=== PATIENT | female | born 1935 | race Caucasian/White ===

== ENCOUNTER 2022-11-27 11:21 | Outpatient (CLI) | payer MEDICARE, SELFPAY | END 2022-11-27 11:22 | disposition home or self-care (01) | LOC: AMB 12-02 07:37 | PROVIDERS: PCP Family Medicine; Visit Provider Emergency Medicine Emergency Medical Services | DX: R55 Syncope and collapse (principal) | CPT/HCPCS: A0425; A0429 ==

== ENCOUNTER 2022-11-27 11:41 | Observation (INO) | payer MEDICARE, SELFPAY ==
[2022-11-27] VITALS (42 sets, daily range): BP systolic 99–173; BP diastolic 53–118; PULSE 87–145; RESP 14–28; TEMP 36.5–36.6; O2SAT 89–99; BMI 41.0
--- NOTE | 2022-11-27 12:10 | ED.GENADULT ---
HPI - General Adult General Chief complaint: Weakness Stated complaint: Headache Time Seen by Provider: 11/27/22 11:55 History of Present Illness HPI narrative: This 87-year-old female comes in reporting some generalized weakness that began today. She states that she was able to get up and ambulate. She did not take her metoprolol this morning. She typically takes 50 mg twice daily. She arrives here with atrial fibrillation and rapid ventricular response. She denies having any chest pain. She states that she has not had atrial fibrillation in the past. She is not on any anticoagulants. She states that she does have an occasional cough and this is been present for the past couple weeks. She did have a antibiotic prescribed for a sinus infection a few weeks ago and took this for a while but did not complete the treatment. Related Data Home Medications Medication Instructions Recorded Confirmed atorvastatin 10 mg tablet 10 mg PO DAILY 11/27/22 11/27/22 chlorthalidone 25 mg tablet 25 mg PO DAILY 11/27/22 11/27/22 fluticasone propionate 220 1 puff inhalation BID 11/27/22 11/27/22 mcg/actuation HFA aerosol inhaler levothyroxine 75 mcg tablet 75 mcg PO DAILY 11/27/22 11/27/22 losartan 50 mg tablet 50 mg PO DAILY 11/27/22 11/27/22 metoprolol tartrate 50 mg tablet 50 mg PO BID 11/27/22 11/27/22 pantoprazole 40 mg tablet,delayed 40 mg PO DAILY 11/27/22 11/27/22 release potassium chloride 10 mEq 20 meq PO DAILY 11/27/22 11/27/22 tablet,extended release Allergies Allergy/AdvReac Type Severity Reaction Status Date / Time codeine Allergy Verified 11/27/22 11:49 lisinopril Allergy Verified 11/27/22 11:49 Review of Systems Status of ROS: Reports: 10 or more systems reviewed and unremarkable except as noted in History and below Narrative: Constitutional: No fevers, no weight gain or loss. Eyes: No discharge. No vision changes. HENT: No congestion, no sore throat, no ear pain. Cardiovascular: No chest pain, no palpitations. Respiratory: No shortness of breath, no wheezes, no cough. Gastrointestinal: No abdominal pain, no vomiting, no diarrhea. Genitourinary: No dysuria, no hematuria. Musculoskeletal: Normal range of motion. Skin: No rashes, no pruritis. Neurological: No dizziness, sensory change, speech change. She reports generalized weakness but is able to get up and ambulate. Endo/Heme/Allergies: No bruising or bleeding. No polydipsia. Pysch: no suicidality, no anxiety, no insomnia. All other systems reviewed and are negative. PFSH PFS Social History Smoking Status: Never smoker How often do you have a drink containing alcohol: monthly or less How often do you have six or more drinks on one occasion: Never AUDIT-C Alcohol total score: 1 Non-prescribed substance use: denies use Exam Narrative: Exam Narrative: Constitutional: Well-developed, well-nourished, no acute distress. HEENT: Normocephalic, atraumatic. Neck: Normal range of motion. Nontender. Supple. Heart: Irregular. No murmurs. Tachycardia. Normal distal pulses. Lungs: Clear to auscultation. No chest discomfort. No wheezes, rhonchi, or rales. Abdomen: Normal bowel sounds. Nontender. No rebound tenderness. Genitalia: Deferred. Back: No midline tenderness. Normal range of motion. Extremities: Normal range of motion. No injury. Skin: Intact. No rash. Warm. No erythema or pallor. Neurologic: No altered sensation. No weakness. Alert and oriented. Psychiatric: No suicidality. No anxiety or depression. No insomnia. Nursing notes and vitals signs are reviewed. Const: Vital Signs, click to edit/add: Vital Signs - 24 hr 11/27/22 11:50 11/27/22 12:05 11/27/22 12:11 Temperature 97.7 F Pulse Rate 134 H 127 H Pulse Rate [Right Pulse Oximeter] 129 H Respiratory Rate 28 H Blood Pressure 146/88 H Blood Pressure [Ri ght Upper Arm] 173/103 H Pulse Oximetry 90 92 90 Oxygen Delivery Me thod Room Air Oxygen Flow Rate 11/27/22 12:15 11/27/22 12:21 11/27/22 12:30 Temperature Pulse Rate 129 H 118 H 102 H Pulse Rate [Right Pulse Oximeter] Respiratory Rate Blood Pressure 118/84 Blood Pressure [Ri ght Upper Arm] Pulse Oximetry 92 89 90 Oxygen Delivery Me thod Oxygen Flow Rate 11/27/22 12:31 11/27/22 12:32 11/27/22 12:35 Temperature Pulse Rate 115 H 112 H Pulse Rate [Right Pulse Oximeter] Respiratory Rate Blood Pressure 130/108 H Blood Pressure [Ri ght Upper Arm] Pulse Oximetry 92 94 95 Oxygen Delivery Me thod Nasal Cannula Nasal Cannula Nasal Cannula Oxygen Flow Rate 2 2 2 11/27/22 12:45 11/27/22 13:00 11/27/22 13:01 Temperature Pulse Rate 99 111 H 103 H Pulse Rate [Right Pulse Oximeter] Respiratory Rate Blood Pressure 116/80 Blood Pressure [Ri ght Upper Arm] Pulse Oximetry 94 96 97 Oxygen Delivery Me thod Nasal Cannula Nasal Cannula Nasal Cannula Oxygen Flow Rate 2 2 2 11/27/22 13:02 11/27/22 13:25 11/27/22 13:30 Temperature Pulse Rate 103 H 124 H Pulse Rate [Right Pulse Oximeter] Respiratory Rate 21 Blood Pressure Blood Pressure [Ri ght Upper Arm] Pulse Oximetry 98 93 Oxygen Delivery Me thod Nasal Cannula Nasal Cannula Oxygen Flow Rate 2 2 11/27/22 13:31 11/27/22 13:35 11/27/22 13:36 Temperature Pulse Rate 125 H 110 H 140 H Pulse Rate [Right Pulse Oximeter] Respiratory Rate 20 18 22 Blood Pressure 126/88 132/101 H 142/104 H Blood Pressure [Ri ght Upper Arm] Pulse Oximetry 97 97 99 Oxygen Delivery Me thod Nasal Cannula Nasal Cannula Nasal Cannula Oxygen Flow Rate 2 3 3 11/27/22 13:41 11/27/22 13:45 11/27/22 13:46 Temperature Pulse Rate 102 H 106 H 90 Pulse Rate [Right Pulse Oximeter] Respiratory Rate 18 19 Blood Pressure 122/75 107/79 Blood Pressure [Ri ght Upper Arm] Pulse Oximetry 92 95 95 Oxygen Delivery Me thod Ambu-Bag Nasal Cannula Nasal Cannula Oxygen Flow Rate 15 3 3 11/27/22 13:47 11/27/22 13:51 Temperature Pulse Rate 121 H 114 H Pulse Rate [Right Pulse Oximeter] Respiratory Rate 22 16 Blood Pressure 100/81 Blood Pressure [Ri ght Upper Arm] Pulse Oximetry 96 95 Oxygen Delivery Me thod Nasal Cannula Nasal Cannula Oxygen Flow Rate 2 2 Course Vital Signs Vital signs: Initial Vital Signs Temperature 97.7 F 11/27/22 11:50 Temperature Source Temporal Artery Scan 11/27/22 11:50 Pulse Rate 129 H 11/27/22 11:50 Pulse Rhythm Irregularly Irregular 11/27/22 11:50 Respiratory Rate 28 H 11/27/22 11:50 Blood Pressure 173/103 H 11/27/22 11:50 Blood Pressure Mean 126 H 11/27/22 11:50 Blood Pressure Position Sitting 11/27/22 11:50 Pulse Oximetry 90 11/27/22 11:50 Oxygen Delivery Method Room Air 11/27/22 11:50 Vital Signs Temperature 97.7 F 11/27/22 11:50 Pulse Rate 129 H 11/27/22 11:50 Respiratory Rate 28 H 11/27/22 11:50 Blood Pressure 173/103 H 11/27/22 11:50 Pulse Oximetry 90 11/27/22 11:50 Oxygen Delivery Method Room Air 11/27/22 11:50 Temperature 97.7 F 11/27/22 11:50 Pulse Rate 114 H 11/27/22 13:51 Respiratory Rate 16 11/27/22 13:51 Blood Pressure 100/81 11/27/22 13:51 Pulse Oximetry 95 11/27/22 13:51 Oxygen Delivery Method Nasal Cannula 11/27/22 13:51 Oxygen Flow Rate 2 11/27/22 13:51 Medical Decision Making MDM Narrative Medical decision making narrative: This patient comes in reporting generalized weakness but does have strength to ambulate. She arrives with tachycardia and irregular rhythm indicating atrial fibrillation with rapid ventricular response. An IV was established where she received 20 mg of diltiazem. This brought her heart rate down to around 110 beats per minute and did lower her blood pressure also. She states that she has not taking her morning meds which she typically takes at noon. This included metoprolol tartrate 50 mg. She last took this medicine at about 6:00 p.m. last night. Lab results returned with reassuring troponin level. Her magnesium is low at 1.2. IV magnesium was administered at 1 gram/hour. The patient is a candidate for cardioversion. After informed consent anesthesia was present to administer total of 100 mg of propofol for adequate sedation. Synchronized cardioversion was attempted at 150 joules with no particular capture of her heart rhythm. The joules were increased to 200 and repeat attempt was made. She did go into sinus rhythm with frequent PACs. This occurred for about a minute after which time she reverted back to atrial fibrillation with rapid ventricular response. She did receive a L of normal saline intravenously in her blood pressure has a systolic value of around 120. I did give an oral dose of metoprolol 25 mg. I spoke with the hospitalist control systems drafting officer, Dr. Calderon, who recommended giving another additional 3 g of magnesium. He is agreeable to bringing her into the hospital for this to occur and further manage the patient's symptoms. Lab Data Labs: Lab Results 11/27/22 11/27/22 Range/Units 11:55 12:04 WBC 8.47 (4.50-11.00) K/uL RBC 4.07 (4.00-5.20) m/uL Hgb 12.5 (12.0-16.0) gm/dL Hct 38.2 (33.0-51.0) % MCV 94 (80-100) fL MCH 31 (26-34) pg MCHC 33 (32-36) gm/dL RDW Coeff of Boni 12.8 (11.5-15.5) % Plt Count 236 (140-440) K/uL Neut % (Auto) 73.6 H (42.0-72.0) % Lymph % (Auto) 16.3 L (20-44) % [place] % (Auto) 7.2 (0.0-11.0) % Eos % (Auto) 2.4 (0.0-7.0) % Baso % (Auto) 0.1 (0.0-3.0) % Neut # (Auto) 6.20 (1.7-7.0) K/uL Lymph # (Auto) 1.40 (0.90-2.90) K/uL [place] # (Auto) 0.60 (0.00-0.90) K/UL Eos # (Auto) 0.20 (0.00-0.50) K/uL Baso # (Auto) 0.01 (0.00-0.30) K/uL Sodium 138 (135-149) mmol/L Potassium 3.4 L (3.6-5.1) mmol/L Chloride 99 (96-114) mmol/L Carbon Dioxide 29 (20-32) mmol/L BUN 20 (7-30) mg/dL Creatinine 0.8 (0.5-1.5) mg/dL Estimated GFR 71 ml/min Glucose 124 H (60-115) mg/dL Calcium 9.2 (8.4-10.6) mg/dL Magnesium 1.2 L (1.5-2.6) mg/dL SARS-CoV-2 (PCR) Negative SARS-CoV-2 (Negative) Influenza Type A (PCR) Negative PCR FLU A (Negative) Influenza Type B (PCR) Negative PCR FLU B (Negative) RSV (PCR) Negative PCR RSV (Negative) POC Troponin I 0.02 (0.01-0.04) ng/ml ECG Data Attestation: I personally reviewed and interpreted this ECG as follows: Interpretation: Atrial fibrillation with rapid ventricular response. There are no specific ST or T-wave abnormalities. Rate is 136 beats per minute. Discharge Plan Discharge Clinical Impression: Atrial fibrillation with rapid ventricular response, Hypomagnesemia Patient Disposition: Admitted As Inpatient Condition: Stable Prescriptions: No Action losartan 50 mg tablet 50 mg PO DAILY atorvastatin 10 mg tablet 10 mg PO DAILY potassium chloride 10 mEq tablet extended release 20 meq PO DAILY chlorthalidone 25 mg tablet 25 mg PO DAILY levothyroxine 75 mcg tablet 75 mcg PO DAILY pantoprazole 40 mg tablet,delayed release (DR/EC) 40 mg PO DAILY metoprolol tartrate 50 mg tablet 50 mg PO BID fluticasone propionate 220 mcg/actuation HFA aerosol inhaler 1 puff INHALATION BID Follow Up/Referrals: Abbe Zuluaga MD [Primary Care Provider] -
[2022-11-27] MEDS: dilTIAZem 5 MG/ML inj 20 MG IVP (12:13)
[2022-11-27 12:17] LABS: Basophils Absolute Auto 0.01 K/uL (0.00-0.30); Basophils Percent Auto 0.1 % (0.0-3.0); Eosinophils Percent Auto 2.4 % (0.0-7.0); Hematocrit 38.2 % (33.0-51.0); Hemoglobin* 12.5 gm/dL (12.0-16.0); Immature Granulocytes Abs Auto 0.03 K/uL (0.00-0.30); Immature Granulocytes Pct Auto 0.4 %; Lymphocytes Percent Auto 16.3 % (20-44); Mean Corpuscular HGB Conc 33 gm/dL (32-36); Mean Corpuscular Hemoglobin 31 pg (26-34); Mean Corpuscular Volume 94 fL (80-100); Monocytes Percent Auto 7.2 % (0.0-11.0); Neutrophils Percent Auto 73.6 % (42.0-72.0); Platelet Count* 236 K/uL (140-440); RDW Coefficient of Variation % 12.8 % (11.5-15.5); Red Blood Count 4.07 m/uL (4.00-5.20); White Blood Count* 8.47 K/uL (4.50-11.00)
[2022-11-27 12:21] LABS: Troponin, Point-of-Care* 0.02 ng/ml (0.01-0.04)
[2022-11-27 12:23] LABS: Slide Review Reflex No
--- NOTE | 2022-11-27 12:34 | ED.NURSE ---
Pt satting ~88% on RA. notified. Pt placed on 2L O2 NC. Sats up to ~95% on 2L O2.
[2022-11-27 12:35] LABS: Chloride* 99 mmol/L (96-114); Potassium* 3.4 mmol/L (3.6-5.1); Sodium* 138 mmol/L (135-149)
[2022-11-27 12:38] LABS: Creatinine* 0.8 mg/dL (0.5-1.5); Estimated Glomerular Filt Rate 71 ml/min
[2022-11-27 12:39] LABS: Blood Urea Nitrogen* 20 mg/dL (7-30); Calcium* 9.2 mg/dL (8.4-10.6); Carbon Dioxide* 29 mmol/L (20-32); Glucose* 124 mg/dL (60-115); Magnesium* 1.2 mg/dL (1.5-2.6)
[2022-11-27 12:42] LABS: PCR FLU A Negative PCR FLU A (Negative); PCR FLU B Negative PCR FLU B (Negative); PCR RSV Negative PCR RSV (Negative)
[2022-11-27 12:43] LABS: SARS PCR* Negative SARS-CoV-2 (Negative)
--- NOTE | 2022-11-27 13:10 | ED.NURSE ---
O2 sats in high 90's%, O2 titrated down to 1L NC.
[2022-11-27] MEDS: 0.9 % SODIUM CHLORIDE 1000 ml 1,000 ML IV (13:30)
[2022-11-27] MEDS: PROPOFOL 10 MG/ML INJ 200 MG IVP (13:35)
--- NOTE | 2022-11-27 13:48 | P.ANES_ITS ---
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
--- NOTE | 2022-11-27 13:48 | W.ANESCHARGE ---
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
--- NOTE | 2022-11-27 13:51 | ED.NURSE ---
1335: Procedure start time. 2x Anesthesia and MD Barnes in RM. Shock at 150J, ineffective. Pt respirations decreased, required ambu-bag ventilation for approx 30 secs, then resumed effective ventilation with jaw thrust and 3L O2 via nasal cannula. Shock at 200J, ineffective. Procedure end time: 1340. 1350: Pt A&Ox4, ventilating effectively on 2L O2 NC.
[2022-11-27] MEDS: ONDANSETRON 2 MG/ML inj 4 MG IVP (13:57)
--- NOTE | 2022-11-27 14:05 | ED.NURSE ---
Pt tolerates sips of water. Denies nausea/dizziness. A&Ox4.
--- NOTE | 2022-11-27 14:15 | W.ANESCHARGE ---
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
[2022-11-27] MEDS: POTASSIUM BICARB 25 MEQ EFFERVESCENT TAB 50 MEQ PO (14:54)
[2022-11-27] MEDS: APIXABAN 5 MG TABLET 10 MG PO (15:02)
[2022-11-27] MEDS: METOPROLOL TARTRATE 25 MG TABLET PO ×3 (15:03→17:03)
--- NOTE | 2022-11-27 15:10 | CRLHL7_ITS ---
For Patients: As a result of the Century Cures Act, medical imaging exams and procedure reports are released immediately into your electronic medical record. You may view this report before your referring provider. If you have questions, please contact your health care provider. INDICATION: [id number]. TECHNIQUE: Chest 2 views. COMPARISON: December 10, 2021. FINDINGS: Cardiovascular and mediastinum: Stable heart size and vasculature. Lungs and pleural spaces: Low lung volumes. Prominent interstitial markings. No sign of infiltrate or mass. No sign of pleural effusion. No pneumothorax. Bones and soft tissues: No significant findings. IMPRESSION: Re-demonstration of prominent interstitial markings, possibly pulmonary edema. No large focal consolidations. Dictated by Pahni Teran MD @ 11/27/2022 4:10:16 PM (Electronically Signed)
--- NOTE | 2022-11-27 15:54 | P.IMHP_ITS ---
Hospitalist- H&P: HPI History of Present Illness Date Seen: 11/27/22 Chief complaint: Headache Narrative: Jacquelyn Roque is a 87 year old female with hypertension, obesity, diabetes mellitus, gastroesophageal reflux, hypothyroidism who presents with onset this morning lightheadedness dizziness weakness and headache. She reports she was feeling in her usual state of health last night when she went to bed. When she awoke this morning she had onset of these symptoms. She does not have any shortness of breath or chest pain. She was not aware of palpitations. She felt like she could pass out but did not pass out. She has not had a fever. She was recently treated for a sinus infection with amoxicillin and her upper and lower respiratory symptoms have largely resolved. She has no previous cardiac history though she tells me on 1 previous occasion she was told she had atrial fi brillation but this was never confirmed. She has hypothyroidism and is on levothyroxine replacement. She has never been diagnosed with sleep apnea but has been told that she has a problem with snoring. In the emergency department she was found to be in atrial fibrillation with RVR. There was an attempt at cardioversion which was briefly successful but then she reverted back and AFib with RVR relatively quickly. She was also found to have hypo magnesemia and hypokalemia. She tells me her exercise tolerance is somewhat limited. She can walk about a half of a block before she has to stop because of shortness of breath. She also tells me that walking is hard because her back hurts. When she is in the grocery store she can lean over a shopping cart and go farther. She does have a history of asthma for which she is on a chronic inhaler. Review of Systems Narrative: Patient reports she has otherwise been feeling well recently except as noted above. She has had no chest pain with exertion. She has had no orthopnea. She has been eating normally. Bowel bladder function have been normal for her. She has mild lower extremity edema the develops as the day progresses. As a chronic problem. [facility] Medical History (Updated 11/27/22 @ 16:05 by August Calderon MD) Spinal stenosis of lumbar region ?M48.061 - Spinal stenosis, lumbar region without neurogenic claudication (ICD-10) Hypothyroidism ?E03.9 - Hypothyroidism, unspecified (ICD-10) Seasonal allergies ?J30.2 - Other seasonal allergic rhinitis (ICD-10) Asthma ?J45.909 - Unspecified asthma, uncomplicated (ICD-10) Sleep apnea ?G47.30 - Sleep apnea, unspecified (ICD-10) Morbid obesity ?E66.01 - Morbid (severe) obesity due to excess calories (ICD-10) Gastroesophageal reflux ?K21.9 - Gastro-esophageal reflux disease without esophagitis (ICD-10) Hypertension ?I10 - Essential (primary) hypertension (ICD-10) Diabetes mellitus ?E11.9 - Type 2 diabetes mellitus without complications (ICD-10) Surgical History (Updated 11/27/22 @ 15:53 by August Calderon MD) History of tonsillectomy and adenoidectomy ?Z90.89 - Acquired absence of other organs (ICD-10) History of abdominal hysterectomy ?Z90.710 - Acquired absence of both cervix and uterus (ICD-10) History of cholecystectomy ?Z90.49 - Acquired absence of other specified parts of digestive tract (ICD- 10) History of appendectomy ?Z90.49 - Acquired absence of other specified parts of digestive tract (ICD- 10) Family History (Updated 11/27/22 @ 15:59 by August Calderon MD) Mother Polycythemia vera Father Prostate cancer Social History (Updated 11/27/22 @ 16:00 by August Calderon MD) Narrative: She lives in [place] with her disabled son and [id number].. She reports generally this is going well for her. Her son Torres who also lives in [place] is healthcare power of real estate attorney. Her code status is DNR. She is a nonsmoker and rarely drinks alcohol. Smoking Status: Never smoker How often do you have a drink containing alcohol: monthly or less How often do you have six or more drinks on one occasion: Never AUDIT-C Alcohol total score: 1 Non-prescribed substance use: denies use Meds Home Medications and Allergies Home Medications Medication Instructions Recorded Confirmed Type aspirin 81 mg tablet,delayed 81 mg PO DAILY 11/27/22 11/27/22 History release atorvastatin 10 mg tablet 10 mg PO DAILY 11/27/22 11/27/22 History chlorthalidone 25 mg tablet 25 mg PO DAILY 11/27/22 11/27/22 History cholecalciferol (vitamin D3) 25 25 mcg PO DAILY 11/27/22 11/27/22 History mcg (1,000 unit) tablet fluticasone propionate 220 1 puff inhalation BID 11/27/22 11/27/22 History mcg/actuation HFA aerosol inhaler levothyroxine 75 mcg tablet 75 mcg PO DAILY 11/27/22 11/27/22 History losartan 50 mg tablet 50 mg PO DAILY 11/27/22 11/27/22 History metoprolol tartrate 50 mg tablet 50 mg PO BID 11/27/22 11/27/22 History pantoprazole 40 mg tablet,delayed 40 mg PO DAILY 11/27/22 11/27/22 History release potassium chloride 10 mEq 20 meq PO DAILY 11/27/22 11/27/22 History tablet,extended release Allergies Allergy/AdvReac Type Severity Reaction Status Date / Time codeine Allergy Verified 11/27/22 11:49 lisinopril Allergy Verified 11/27/22 11:49 Exam Narrative: Exam Narrative: She is alert and appears in no distress. She is oriented to her circumstances. She gives her own history with good detail. Head is without trauma. Eyes normal. Oropharynx notable for a very small airway and prominent tongue. No mucosal abnormalities. Neck is supple without mass or adenopathy. Respirations are relatively clear to auscultation with a few basilar crackles. No wheezing. Cardiovascular: S1, S2, irregular tachycardia. Distant heart sounds. Abdomen: Bowel sounds active. Abdomen is soft without tenderness or mass. Extremities with 2+ edema in her ankles bilaterally. She has diminished pedal pulses bilaterally as well. No open skin lesions. No rash. Const: Vital Signs, click to edit/add: Vital Signs - 24 hr 11/27/22 11:50 11/27/22 12:00 11/27/22 12:05 Temperature 97.7 F Pulse Rate 134 H Pulse Rate [Right Pulse Oximeter] 129 H Respiratory Rate 28 H Blood Pressure Blood Pressure [Ri ght Upper Arm] 173/103 H Pulse Oximetry 90 92 92 Oxygen Delivery Me thod Room Air Oxygen Flow Rate 11/27/22 12:11 11/27/22 12:15 11/27/22 12:21 Temperature Pulse Rate 127 H 129 H 118 H Pulse Rate [Right Pulse Oximeter] Respiratory Rate Blood Pressure 146/88 H 118/84 Blood Pressure [Ri ght Upper Arm] Pulse Oximetry 90 92 89 Oxygen Delivery Me thod Oxygen Flow Rate 11/27/22 12:30 11/27/22 12:31 11/27/22 12:32 Temperature Pulse Rate 102 H 115 H 112 H Pulse Rate [Right Pulse Oximeter] Respiratory Rate Blood Pressure 130/108 H Blood Pressure [Ri ght Upper Arm] Pulse Oximetry 90 92 94 Oxygen Delivery Me thod Nasal Cannula Nasal Cannula Oxygen Flow Rate 2 2 11/27/22 12:35 11/27/22 12:45 11/27/22 13:00 Temperature Pulse Rate 99 111 H Pulse Rate [Right Pulse Oximeter] Respiratory Rate Blood Pressure Blood Pressure [Ri ght Upper Arm] Pulse Oximetry 95 94 96 Oxygen Delivery Me thod Nasal Cannula Nasal Cannula Nasal Cannula Oxygen Flow Rate 2 2 2 11/27/22 13:01 11/27/22 13:02 11/27/22 13:25 Temperature Pulse Rate 103 H 103 H 124 H Pulse Rate [Right Pulse Oximeter] Respiratory Rate Blood Pressure 116/80 Blood Pressure [Ri ght Upper Arm] Pulse Oximetry 97 98 93 Oxygen Delivery Me thod Nasal Cannula Nasal Cannula Oxygen Flow Rate 2 2 11/27/22 13:30 11/27/22 13:31 11/27/22 13:35 Temperature Pulse Rate 125 H 110 H Pulse Rate [Right Pulse Oximeter] Respiratory Rate 21 20 18 Blood Pressure 126/88 132/101 H Blood Pressure [Ri ght Upper Arm] Pulse Oximetry 97 97 Oxygen Delivery Me thod Nasal Cannula Nasal Cannula Nasal Cannula Oxygen Flow Rate 2 2 3 11/27/22 13:36 11/27/22 13:41 11/27/22 13:45 Temperature Pulse Rate 140 H 102 H 106 H Pulse Rate [Right Pulse Oximeter] Respiratory Rate 22 18 Blood Pressure 142/104 H 122/75 Blood Pressure [Ri ght Upper Arm] Pulse Oximetry 99 92 95 Oxygen Delivery Me thod Nasal Cannula Ambu-Bag Nasal Cannula Oxygen Flow Rate 3 15 3 11/27/22 13:46 11/27/22 13:47 11/27/22 13:51 Temperature Pulse Rate 90 121 H 114 H Pulse Rate [Right Pulse Oximeter] Respiratory Rate 19 22 16 Blood Pressure 107/79 100/81 Blood Pressure [Ri ght Upper Arm] Pulse Oximetry 95 96 95 Oxygen Delivery Me thod Nasal Cannula Nasal Cannula Nasal Cannula Oxygen Flow Rate 3 2 2 11/27/22 13:52 11/27/22 13:56 11/27/22 14:00 Temperature Pulse Rate 111 H 117 H 110 H Pulse Rate [Right Pulse Oximeter] Respiratory Rate 16 16 17 Blood Pressure 116/93 H Blood Pressure [Ri ght Upper Arm] Pulse Oximetry 96 96 95 Oxygen Delivery Me thod Nasal Cannula Nasal Cannula Nasal Cannula Oxygen Flow Rate 2 2 2 11/27/22 14:01 11/27/22 14:15 11/27/22 14:16 Temperature Pulse Rate 93 109 H 112 H Pulse Rate [Right Pulse Oximeter] Respiratory Rate 17 17 17 Blood Pressure 107/70 117/93 H Blood Pressure [Ri ght Upper Arm] Pulse Oximetry 98 96 97 Oxygen Delivery Me thod Nasal Cannula Nasal Cannula Nasal Cannula Oxygen Flow Rate 2 2 2 11/27/22 14:30 11/27/22 14:31 11/27/22 14:45 Temperature Pulse Rate 128 H 124 H 127 H Pulse Rate [Right Pulse Oximeter] Respiratory Rate 14 22 15 Blood Pressure 127/65 Blood Pressure [Ri ght Upper Arm] Pulse Oximetry 98 98 97 Oxygen Delivery Me thod Nasal Cannula Nasal Cannula Nasal Cannula Oxygen Flow Rate 2 2 2 11/27/22 14:46 11/27/22 15:01 11/27/22 15:02 Temperature Pulse Rate 131 H 121 H 145 H Pulse Rate [Right Pulse Oximeter] Respiratory Rate 16 15 21 Blood Pressure 122/100 H 150/118 H Blood Pressure [Ri ght Upper Arm] Pulse Oximetry 98 98 98 Oxygen Delivery Me thod Nasal Cannula Nasal Cannula Nasal Cannula Oxygen Flow Rate 2 2 2 11/27/22 15:03 11/27/22 15:15 11/27/22 15:16 Temperature Pulse Rate 132 H 122 H 108 H Pulse Rate [Right Pulse Oximeter] Respiratory Rate 22 17 16 Blood Pressure 137/109 H Blood Pressure [Ri ght Upper Arm] Pulse Oximetry 97 95 96 Oxygen Delivery Me thod Nasal Cannula Nasal Cannula Nasal Cannula Oxygen Flow Rate 2 2 2 Documenting provider has reviewed patient's vital signs: yes Hospitalist - H&P: Result Labs Labs: Short CBC 11/27/22 Range/Units 11:55 WBC 8.47 (4.50-11.00) K/uL Hgb 12.5 (12.0-16.0) gm/dL Hct 38.2 (33.0-51.0) % Plt Count 236 (140-440) K/uL [facility] 11/27/22 11:55 Sodium 138 Potassium 3.4 L Chloride 99 Carbon Dioxide 29 BUN 20 Creatinine 0.8 Glucose 124 H Calcium 9.2 Assessment and Plan Assessment and plan (1) Atrial fibrillation with rapid ventricular response: Problem comment: Correct electrolyte abnormalities, rate control, anticoagulation, echocardiogram. Status: Acute (2) Hypomagnesemia: Problem comment: Replace Status: Acute (3) Hypokalemia: Problem comment: Replace Status: Acute (4) Spinal stenosis of lumbar region: Problem comment: Clinically suspected based on history of back pain and leg pain associated with ambulation relieved by leaning forward. Status: Suspected Plan Patient is admitted to the hospital for ongoing evaluation management of atrial fibrillation with rapid ventricular response, electrolyte abnormalities and evaluation of heart disease. Total time spent today is 80 minutes, 50 minutes in coordination of care discussing with patient other providers ongoing evaluation management of atrial fibrillation and rapid ventricular response
[2022-11-27 16:14] LABS: NT Pro B Type NatriureticPept* 591 pg/mL
[2022-11-27] MEDS: MAGNESIUM IV 2 GM/50 ML PIGGYBACK IVPB (17:02)
[2022-11-27] MEDS: FUROSEMIDE 10 MG/ML inj 20 MG IVP (18:55)
[2022-11-27] MEDS: MAGNESIUM OXIDE 400 MG TABLET PO (20:50)
[2022-11-27] MEDS: METOPROLOL TARTRATE 50 MG TABLET 75 MG PO (20:51)
[2022-11-27] MEDS: APIXABAN 5 MG TABLET PO (20:51)
[2022-11-27] MEDS: SODIUM CHLORIDE 0.9 % (FLUSH) 10 ML SYRINGE 5 ML IVF (20:53)
[2022-11-28] VITALS (8 sets, daily range): BP systolic 101–128; BP diastolic 66–85; PULSE 80–111; RESP 16–18; TEMP 36.6–37.3; O2SAT 89–95
--- NOTE | 2022-11-28 06:12 | PC.NURSE ---
Shift note: Pt is doing well. Able to maintain O2>90 on room air. Denied any pain. Continuous to have A. Fib per tele reading with RVR. Pt has frequency of urination. Pt has adequate rest and sleep. Vitally stable.
[2022-11-28 06:15] LABS: Basophils Absolute Auto 0.02 K/uL (0.00-0.30); Basophils Percent Auto 0.2 % (0.0-3.0); Eosinophils Percent Auto 3.7 % (0.0-7.0); Hematocrit 36.9 % (33.0-51.0); Immature Granulocytes Abs Auto 0.02 K/uL (0.00-0.30); Immature Granulocytes Pct Auto 0.2 %; Lymphocytes Absolute Auto 1.61 K/uL (0.90-2.90); Mean Corpuscular HGB Conc 33 gm/dL (32-36); Mean Corpuscular Hemoglobin 31 pg (26-34); Mean Corpuscular Volume 94 fL (80-100); Monocytes Percent Auto 9.1 % (0.0-11.0); Neutrophils Absolute Auto 5.38 K/uL (1.7-7.0); Neutrophils Percent Auto 66.8 % (42.0-72.0); Platelet Count* 238 K/uL (140-440); RDW Coefficient of Variation % 12.9 % (11.5-15.5); Red Blood Count 3.92 m/uL (4.00-5.20); White Blood Count* 8.06 K/uL (4.50-11.00)
[2022-11-28 06:18] LABS: Slide Review Reflex No
[2022-11-28 06:28] LABS: Chloride* 98 mmol/L (96-114); Potassium* 3.6 mmol/L (3.6-5.1); Sodium* 139 mmol/L (135-149)
[2022-11-28] MEDS: OMEPRAZOLE 20 MG CAPSULE DR 40 MG PO (06:29)
[2022-11-28] MEDS: LEVOTHYROXINE 75 MCG TABLET PO (06:29)
[2022-11-28 06:31] LABS: Blood Urea Nitrogen* 18 mg/dL (7-30); Carbon Dioxide* 36 mmol/L (20-32); Est. Creatinine Clearance* 28.47; Estimated Glomerular Filt Rate 55 ml/min; Glucose* 95 mg/dL (60-115)
[2022-11-28 07:43] LABS: NT Pro B Type NatriureticPept* 3460 pg/mL; Troponin I* < 0.01 ng/mL (0.01-0.04)
[2022-11-28] MEDS: SODIUM CHLORIDE 0.9 % (FLUSH) 10 ML SYRINGE 5 ML IVF (08:50)
[2022-11-28] MEDS: CHLORTHALIDONE 25 MG TABLET PO (08:50)
[2022-11-28] MEDS: APIXABAN 5 MG TABLET PO ×2 (08:51→21:13)
[2022-11-28] MEDS: POTASSIUM CHLORIDE 10 MEQ CAPSULE ER 20 MEQ PO ×2 (08:51→17:35)
[2022-11-28] MEDS: METOPROLOL TARTRATE 50 MG TABLET 75 MG PO ×2 (08:52→21:13)
[2022-11-28] MEDS: MAGNESIUM OXIDE 400 MG TABLET PO ×2 (08:52→21:13)
[2022-11-28] MEDS: ATORVASTATIN 10 MG TABLET PO (08:52)
--- NOTE | 2022-11-28 09:09 | PM.IMPN1 ---
Progress Note: A&P Assessment and plan (1) Atrial fibrillation with rapid ventricular response: Problem details: [id number] score 5, 7.2% risk rvr resolved continue increased dose of metoprolol (50 bid --> 75 bid) eliquis echo this afternoon holter at discharge outpatient cards Status: Acute (2) Hypomagnesemia: Problem details: normal this am Status: Acute (3) Hypokalemia: Problem details: normal this am Status: Acute (4) Spinal stenosis of lumbar region: Problem details: Clinically suspected based on history of back pain and leg pain associated with ambulation relieved by leaning forward. Status: Suspected (5) Diabetes mellitus: Problem details: Diet controlled. Home blood sugars in the low 100s Status: Acute (6) Sleep apnea: Problem details: Suspected based on history and body habitus. Recommend outpatient evaluation. Status: Suspected Subjective Date Seen: 11/28/22 Interval history: Daily Progress Note - Hospital Medicine Day #:2 CC: afib/rvr, low mag, low potassium OVERNIGHT UPDATES FROM STAFF & MED, LAB, IMAGING UPDATES rate controlled with metoprolol increase, now on eliquis. pt reports headache but feels much better than yesterday. telemetry - afib but now rate controlled. Objective: alert, participates in health care discussion. Vitals: see above Lungs: Clear. Cardiac: [id number] irreg trace edema Disposition/Potential discharge - Likely to return to previous living situation. Total time is 35 minutes with greater than 50% spent in counseling and coordination of care. Exam Const: Vital Signs, click to edit/add: Vital Signs - 24 hr 11/27/22 11:50 11/27/22 12:00 11/27/22 12:05 Temperature 97.7 F Pulse Rate 134 H Pulse Rate [Pulse Oximeter] Pulse Rate [Right Pulse Oximeter] 129 H Respiratory Rate 28 H Blood Pressure Blood Pressure [Ri ght Arm] Blood Pressure [Ri ght Upper Arm] 173/103 H Pulse Oximetry 90 92 92 Oxygen Delivery Me thod Room Air Oxygen Flow Rate 11/27/22 12:11 11/27/22 12:15 11/27/22 12:21 Temperature Pulse Rate 127 H 129 H 118 H Pulse Rate [Pulse Oximeter] Pulse Rate [Right Pulse Oximeter] Respiratory Rate Blood Pressure 146/88 H 118/84 Blood Pressure [Ri ght Arm] Blood Pressure [Ri ght Upper Arm] Pulse Oximetry 90 92 89 Oxygen Delivery Me thod Oxygen Flow Rate 11/27/22 12:30 11/27/22 12:31 11/27/22 12:32 Temperature Pulse Rate 102 H 115 H 112 H Pulse Rate [Pulse Oximeter] Pulse Rate [Right Pulse Oximeter] Respiratory Rate Blood Pressure 130/108 H Blood Pressure [Ri ght Arm] Blood Pressure [Ri ght Upper Arm] Pulse Oximetry 90 92 94 Oxygen Delivery Me thod Nasal Cannula Nasal Cannula Oxygen Flow Rate 2 2 11/27/22 12:35 11/27/22 12:45 11/27/22 13:00 Temperature Pulse Rate 99 111 H Pulse Rate [Pulse Oximeter] Pulse Rate [Right Pulse Oximeter] Respiratory Rate Blood Pressure Blood Pressure [Ri ght Arm] Blood Pressure [Ri ght Upper Arm] Pulse Oximetry 95 94 96 Oxygen Delivery Me thod Nasal Cannula Nasal Cannula Nasal Cannula Oxygen Flow Rate 2 2 2 11/27/22 13:01 11/27/22 13:02 11/27/22 13:25 Temperature Pulse Rate 103 H 103 H 124 H Pulse Rate [Pulse Oximeter] Pulse Rate [Right Pulse Oximeter] Respiratory Rate Blood Pressure 116/80 Blood Pressure [Ri ght Arm] Blood Pressure [Ri ght Upper Arm] Pulse Oximetry 97 98 93 Oxygen Delivery Me thod Nasal Cannula Nasal Cannula Oxygen Flow Rate 2 2 11/27/22 13:30 11/27/22 13:31 11/27/22 13:35 Temperature Pulse Rate 125 H 110 H Pulse Rate [Pulse Oximeter] Pulse Rate [Right Pulse Oximeter] Respiratory Rate 21 20 18 Blood Pressure 126/88 132/101 H Blood Pressure [Ri ght Arm] Blood Pressure [Ri ght Upper Arm] Pulse Oximetry 97 97 Oxygen Delivery Me thod Nasal Cannula Nasal Cannula Nasal Cannula Oxygen Flow Rate 2 2 3 11/27/22 13:36 11/27/22 13:41 11/27/22 13:45 Temperature Pulse Rate 140 H 102 H 106 H Pulse Rate [Pulse Oximeter] Pulse Rate [Right Pulse Oximeter] Respiratory Rate 22 18 Blood Pressure 142/104 H 122/75 Blood Pressure [Ri ght Arm] Blood Pressure [Ri ght Upper Arm] Pulse Oximetry 99 92 95 Oxygen Delivery Me thod Nasal Cannula Ambu-Bag Nasal Cannula Oxygen Flow Rate 3 15 3 05/31/23 13:46 11/27/22 13:47 11/27/22 13:51 Temperature Pulse Rate 90 121 H 114 H Pulse Rate [Pulse Oximeter] Pulse Rate [Right Pulse Oximeter] Respiratory Rate 19 22 16 Blood Pressure 107/79 100/81 Blood Pressure [Ri ght Arm] Blood Pressure [Ri ght Upper Arm] Pulse Oximetry 95 96 95 Oxygen Delivery Me thod Nasal Cannula Nasal Cannula Nasal Cannula Oxygen Flow Rate 3 2 2 11/27/22 13:52 11/27/22 13:56 11/27/22 14:00 Temperature Pulse Rate 111 H 117 H 110 H Pulse Rate [Pulse Oximeter] Pulse Rate [Right Pulse Oximeter] Respiratory Rate 16 16 17 Blood Pressure 116/93 H Blood Pressure [Ri ght Arm] Blood Pressure [Ri ght Upper Arm] Pulse Oximetry 96 96 95 Oxygen Delivery Me thod Nasal Cannula Nasal Cannula Nasal Cannula Oxygen Flow Rate 2 2 2 11/27/22 14:01 11/27/22 14:15 11/27/22 14:16 Temperature Pulse Rate 93 109 H 112 H Pulse Rate [Pulse Oximeter] Pulse Rate [Right Pulse Oximeter] Respiratory Rate 17 17 17 Blood Pressure 107/70 117/93 H Blood Pressure [Ri ght Arm] Blood Pressure [Ri ght Upper Arm] Pulse Oximetry 98 96 97 Oxygen Delivery Me thod Nasal Cannula Nasal Cannula Nasal Cannula Oxygen Flow Rate 2 2 2 11/27/22 14:30 11/27/22 14:31 11/27/22 14:45 Temperature Pulse Rate 128 H 124 H 127 H Pulse Rate [Pulse Oximeter] Pulse Rate [Right Pulse Oximeter] Respiratory Rate 14 22 15 Blood Pressure 127/65 Blood Pressure [Ri ght Arm] Blood Pressure [Ri ght Upper Arm] Pulse Oximetry 98 98 97 Oxygen Delivery Me thod Nasal Cannula Nasal Cannula Nasal Cannula Oxygen Flow Rate 2 2 2 11/27/22 14:46 11/27/22 15:01 11/27/22 15:02 Temperature Pulse Rate 131 H 121 H 145 H Pulse Rate [Pulse Oximeter] Pulse Rate [Right Pulse Oximeter] Respiratory Rate 16 15 21 Blood Pressure 122/100 H 150/118 H Blood Pressure [Ri ght Arm] Blood Pressure [Ri ght Upper Arm] Pulse Oximetry 98 98 98 Oxygen Delivery Me thod Nasal Cannula Nasal Cannula Nasal Cannula Oxygen Flow Rate 2 2 2 11/27/22 15:03 11/27/22 15:15 11/27/22 15:16 Temperature Pulse Rate 132 H 122 H 108 H Pulse Rate [Pulse Oximeter] Pulse Rate [Right Pulse Oximeter] Respiratory Rate 22 17 16 Blood Pressure 137/109 H Blood Pressure [Ri ght Arm] Blood Pressure [Ri ght Upper Arm] Pulse Oximetry 97 95 96 Oxygen Delivery Me thod Nasal Cannula Nasal Cannula Nasal Cannula Oxygen Flow Rate 2 2 2 11/27/22 18:16 11/27/22 18:16 11/27/22 19:00 Temperature 97.8 F 97.9 F Pulse Rate Pulse Rate [Pulse Oximeter] 112 H 114 H Pulse Rate [Right Pulse Oximeter] Respiratory Rate 16 16 16 Blood Pressure Blood Pressure [Ri ght Arm] 122/72 134/93 H Blood Pressure [Ri ght Upper Arm] Pulse Oximetry 92 92 92 Oxygen Delivery Me thod Room Air Room Air Room Air Oxygen Flow Rate 11/27/22 23:00 11/27/22 23:00 11/27/22 23:00 Temperature 97.9 F Pulse Rate 87 Pulse Rate [Pulse Oximeter] 87 Pulse Rate [Right Pulse Oximeter] Respiratory Rate 16 16 Blood Pressure Blood Pressure [Ri ght Arm] 99/53 L Blood Pressure [Ri ght Upper Arm] Pulse Oximetry 91 Oxygen Delivery Me thod Room Air Oxygen Flow Rate 11/28/22 03:00 11/28/22 07:32 11/28/22 08:00 Temperature 97.9 F 98.4 F Pulse Rate 99 Pulse Rate [Pulse Oximeter] 97 96 Pulse Rate [Right Pulse Oximeter] Respiratory Rate 16 18 Blood Pressure Blood Pressure [Ri ght Arm] 114/77 128/85 Blood Pressure [Ri ght Upper Arm] Pulse Oximetry 89 93 Oxygen Delivery Me thod Room Air Room Air Oxygen Flow Rate 11/28/22 08:00 Temperature Pulse Rate Pulse Rate [Pulse Oximeter] Pulse Rate [Right Pulse Oximeter] Respiratory Rate 18 Blood Pressure Blood Pressure [Ri ght Arm] Blood Pressure [Ri ght Upper Arm] Pulse Oximetry Oxygen Delivery Me thod Oxygen Flow Rate Labs Labs: Laboratory Results - last 24 hr 11/27/22 11/27/22 11/27/22 11:55 12:04 15:48 WBC 8.47 RBC 4.07 Hgb 12.5 Hct 38.2 MCV 94 MCH 31 MCHC 33 RDW Coeff of Boni 12.8 Plt Count 236 Neut % (Auto) 73.6 H Lymph % (Auto) 16.3 L Walsh % (Auto) 7.2 Eos % (Auto) 2.4 Baso % (Auto) 0.1 Neut # (Auto) 6.20 Lymph # (Auto) 1.40 Walsh # (Auto) 0.60 Eos # (Auto) 0.20 Baso # (Auto) 0.01 Sodium 138 Potassium 3.4 L Chloride 99 Carbon Dioxide 29 BUN 20 Creatinine 0.8 Estimated Creat Clear Estimated GFR 71 Glucose 124 H Calcium 9.2 Magnesium 1.2 L Troponin I NT-Pro-B Natriuret Pep 591 TSH 3.250 SARS-CoV-2 (PCR) Negative SARS-CoV-2 Influenza Type A (PCR) Negative PCR FLU A Influenza Type B (PCR) Negative PCR FLU B RSV (PCR) Negative PCR RSV Lab Acknowledgement Test Added POC Troponin I 0.02 11/28/22 11/28/22 05:56 07:08 WBC 8.06 RBC 3.92 L Hgb 12.0 Hct 36.9 MCV 94 MCH 31 MCHC 33 RDW Coeff of Boni 12.9 Plt Count 238 Neut % (Auto) 66.8 Lymph % (Auto) 20.0 Walsh % (Auto) 9.1 Eos % (Auto) 3.7 Baso % (Auto) 0.2 Neut # (Auto) 5.38 Lymph # (Auto) 1.61 Walsh # (Auto) 0.70 Eos # (Auto) 0.30 Baso # (Auto) 0.02 Sodium 139 Potassium 3.6 Chloride 98 Carbon Dioxide 36 H BUN 18 Creatinine 1.0 Estimated Creat Clear 28.47 Estimated GFR 55 Glucose 95 Calcium 9.0 Magnesium 2.0 Troponin I < 0.01 L NT-Pro-B Natriuret Pep 3460 TSH SARS-CoV-2 (PCR) Influenza Type A (PCR) Influenza Type B (PCR) RSV (PCR) Lab Acknowledgement Test Added POC Troponin I
[2022-11-28 09:42] LABS: Hemoglobin A1C* 6.14 % (0-5.6)
--- NOTE | 2022-11-28 14:39 | PC.NURSE ---
End of shift. pt has been very pleasant. she had a MONIQUE this am that improved. no c/p or SOB tele is A-fib. she is up ab marlen. SL is pricila. HR is 90-110. she worked with PT./ she is eating, drinking and voiding.
--- NOTE | 2022-11-28 18:27 | PC.NURSE ---
Patient alert and oriented x 3, denies any pain or shortness of breath. Lung sounds clear. Bowel sounds active x 4 quadrants. Ambulates independently in room.
[2022-11-29 03:00] VITALS: BP 110/74; PULSE 94; RESP 18; TEMP 36.8; O2SAT 92
[2022-11-29 06:14] LABS: HCO3 VBG 31 mmol/L (21-28); Ionized Calcium* 1.14 mmol/L (1.11-1.30); PCO2 VBG 48 mmHG (40-50)
[2022-11-29 06:22] LABS: Hematocrit 37.1 % (33.0-51.0); Mean Corpuscular HGB Conc 32 gm/dL (32-36); Mean Corpuscular Hemoglobin 31 pg (26-34); Mean Corpuscular Volume 94 fL (80-100); Platelet Count* 226 K/uL (140-440); Red Blood Count 3.93 m/uL (4.00-5.20); White Blood Count* 7.81 K/uL (4.50-11.00)
[2022-11-29 06:31] LABS: Slide Review Reflex No
[2022-11-29 06:36] LABS: Chloride* 98 mmol/L (96-114); Potassium* 3.7 mmol/L (3.6-5.1); Sodium* 137 mmol/L (135-149)
[2022-11-29 06:39] LABS: Creatinine* 0.9 mg/dL (0.5-1.5); Est. Creatinine Clearance* 28.47; Estimated Glomerular Filt Rate 62 ml/min
[2022-11-29 06:40] LABS: Blood Urea Nitrogen* 19 mg/dL (7-30); Calcium* 8.9 mg/dL (8.4-10.6); Carbon Dioxide* 33 mmol/L (20-32); Glucose* 106 mg/dL (60-115)
[2022-11-29 06:43] LABS: C Reactive Protein* 1.2 mg/dL (0.5-1.0)
[2022-11-29] MEDS: LEVOTHYROXINE 75 MCG TABLET PO (06:50)
[2022-11-29] MEDS: OMEPRAZOLE 20 MG CAPSULE DR 40 MG PO (06:50)
[2022-11-29 06:53] LABS: NT Pro B Type NatriureticPept* 2910 pg/mL; Troponin I* < 0.01 ng/mL (0.01-0.04)
[2022-11-29 07:00] VITALS: BP 115/72; PULSE 111; RESP 18; TEMP 36.6; O2SAT 97
[2022-11-29] MEDS: CHLORTHALIDONE 25 MG TABLET PO (08:50)
[2022-11-29] MEDS: POTASSIUM CHLORIDE 10 MEQ CAPSULE ER 20 MEQ PO (08:50)
[2022-11-29] MEDS: ATORVASTATIN 10 MG TABLET PO (08:50)
[2022-11-29] MEDS: APIXABAN 5 MG TABLET PO (08:50)
[2022-11-29] MEDS: MAGNESIUM OXIDE 400 MG TABLET PO (08:51)
[2022-11-29] MEDS: METOPROLOL TARTRATE 100 MG TABLET PO (08:51)
[2022-11-29 11:00] VITALS: BP 129/82; PULSE 94; RESP 21; TEMP 36.8; O2SAT 96
[2022-11-29 13:37] VITALS: BP 137/109; PULSE 111; RESP 21; TEMP 36.8
--- NOTE | 2022-11-29 13:45 | P.DS_ITS ---
DS: Providers Provider Date Seen: 11/29/22 Date of admission: 11/27/22 15:38 Primary care physician: Abbe Zuluaga MD Admitting Clinician: August Calderon MD Consults: 11/28/22 Consult to Physical Therapy [CONS] Routine Comment: Reason(s) for PT Consult:: Evaluate and Treat Any Restrictions?:: No Restrictions Attending Physician on discharge: August Calderon MD Date of Discharge: 11/29/22 DS: Diagnosis Discharge Diagnosis (1) Atrial fibrillation with rapid ventricular response: Status: Acute Problem details: [id number] score 5, 7.2% risk rvr resolved continue increased dose of metoprolol (50 bid --> 100 bid) eliquis sent outpatient pharmacy echo reassuring, left atrial enlargement as expected Outpatient cardiology evaluation arranged (2) Diabetes mellitus: Status: Acute Problem details: Diet controlled. Home blood sugars in the low 100s DS: Summary Hospital Course Hospital Course: HOSPITALIST DISCHARGE SUMMARY ATTENDING PHYSICIAN: Ruth Emery MD FINAL DIAGNOSIS: New atrial fibrillation, RVR - now rate controlled New anticoagulation HOSPITAL FOLLOWUP ISSUES: 1. Cardiology - establish care - AFIB management REFERRALS WHILE ADMITTED: None REFERRALS AFTER DISCHARGE: Cardiology BRIEF HOSPITAL COURSE: Patient is an 87-year-old female who presented in AFib with RVR. Attempted cardioversion failed in the emergency room. She was found to have low magnesium and low potassium. Once these electrolytes were replaced and we up titrated her beta-gustavo she did quite well. By day 2 she was ambulating the halls on metoprolol 100 mg b.i.d. which is up from her 50 mg b.i.d. prior to admission. She denied chest pain, shortness of breath, and palpitations with this exercise trial. We did complete an echocardiogram which was normal other than left atrial enlargement which is not unexpected. We recommended given her chads Vasc score chronic and continuous anticoagulation. My colleague called her pharmacy to find that her Eliquis was 45 dollars a month which Jacquelyn felt quite comfortable paying. She had a who is on warfarin and she hates that medication. I have asked her establish care with Cardiology. An appointment was made for her at [facility] [place] for early next week. She was happy to discharge on felt comfortable with our plan. DISCHARGE MEDICATIONS: See Reconciled list - SIGNIFICANT CHANGES: Increased metoprolol dose Eliquis 5 mg b.i.d. REVIEW OF SYSTEMS No new chest pain or dyspnea Pain controlled No voiding difficulties Tolerating diet challenge PHYSICAL EXAM: CONSTITUTIONAL: Alert, comfortable. NAD. VITAL SIGNS: see record. HEENT: Normocephalic, atraumatic. PERRL, EOMI, conjunctivae pink, no scleral icterus. Ears and nose externally normal. Pharynx normal. NECK: No JVD. No carotid bruit, no thyromegaly, no adenopathy. CHEST: Clear to auscultation bilaterally. HEART: S1 and S2 normal. Irregularly irregular Edema trace ABDOMEN: Soft, nontender. Normal bowel sounds. MUSCULOSKELETAL: No gross joint deformity or swelling. NEURO: Cranial nerves intact. Grossly intact. No asymmetric findings. SKIN: No rashes, petechiae, concerning changes PSYCHIATRIC: Mood euthymic. DISPOSITION: Home with family Time spent on discharge 37 minutes. Status at Discharge Functional status at discharge: uses cane/walker Overall status at discharge: patient is progressing back to baseline Time Spent with Patient Time attestation: Total time spent providing and/or coordinating discharge services: Time spent: Greater than 30 minutes Exam Const: Vital Signs, click to edit/add: Vital Signs - 24 hr 11/28/22 15:00 11/28/22 15:00 11/28/22 15:43 Temperature 99.1 F Pulse Rate 100 Pulse Rate [Left R adial] Pulse Rate [Pulse Oximeter] 90 86 Respiratory Rate 18 Blood Pressure Blood Pressure [Ri ght Arm] 112/66 Pulse Oximetry 90 Oxygen Delivery Me thod Room Air 11/28/22 19:00 11/28/22 23:00 11/28/22 23:00 Temperature 98.2 F Pulse Rate 111 H Pulse Rate [Left R adial] 97 80 Pulse Rate [Pulse Oximeter] Respiratory Rate 18 18 Blood Pressure Blood Pressure [Ri ght Arm] 114/74 Pulse Oximetry 92 Oxygen Delivery Me thod Room Air 11/28/22 23:00 11/29/22 03:00 11/29/22 07:00 Temperature 98.2 F 98.2 F Pulse Rate Pulse Rate [Left R adial] 80 94 111 H Pulse Rate [Pulse Oximeter] Respiratory Rate 18 18 18 Blood Pressure Blood Pressure [Ri ght Arm] 101/79 110/74 Pulse Oximetry 95 92 Oxygen Delivery Me thod Room Air Room Air 11/29/22 07:00 11/29/22 07:00 11/29/22 11:00 Temperature 98 F 98.2 F Pulse Rate 111 H Pulse Rate [Left R adial] Pulse Rate [Pulse Oximeter] 111 H 94 Respiratory Rate 18 21 Blood Pressure Blood Pressure [Ri ght Arm] 115/72 129/82 Pulse Oximetry 97 96 [facility] 11/29/22 13:37 Temperature 98.2 F Pulse Rate 111 H Pulse Rate [Left R adial] Pulse Rate [Pulse Oximeter] Respiratory Rate 21 Blood Pressure 137/109 H Blood Pressure [Ri ght Arm] Pulse Oximetry Oxygen Delivery Me thod DS: Data Data Completed and Pending Labs on day of discharge: Labs from last 24 hours 11/29/22 06:06 WBC 7.81 RBC 3.93 L Hgb 12.0 Hct 37.1 MCV 94 MCH 31 MCHC 32 Plt Count 226 VBG pH 7.420 VBG pCO2 48 VBG pO2 52.0 H VBG HCO3 31 H Sodium 137 Potassium 3.7 Chloride 98 Carbon Dioxide 33 H BUN 19 Creatinine 0.9 Estimated Creat Clear 28.47 Estimated GFR 62 Glucose 106 Hemoglobin A1c Cancelled Calcium 8.9 Ionized Calcium Yumiko 1.14 Magnesium Pending Troponin I < 0.01 L C-Reactive Protein 1.2 H NT-Pro-B Natriuret Pep 2910 Discharge Plan Discharge Disposition: Home w/ Parent or Adult Date of Admission: 11/27/22 15:38 Attending Physician on Admission: August Calderon Attending Provider on Discharge: Ruth Emery Primary Care Provider: Abbe Zuluaga Condition: Stable Anticipated Discharge Date/Time: 11/29/22 11:14 Discharge Medications: New metoprolol tartrate 100 mg Tablet 100 mg PO BID Qty: 60 0RF Rx Instructions: finish your home supply of 50mg metoprolol by taking two tabs(100mg) twice daily, when gone - new med is 100mg, so one tab BID Eliquis 5 mg Tablet 5 mg PO BID Qty: 60 0RF Continued losartan 50 mg tablet 50 mg PO DAILY atorvastatin 10 mg tablet 10 mg PO DAILY potassium chloride 10 mEq tablet extended release 20 meq PO DAILY chlorthalidone 25 mg tablet 25 mg PO DAILY levothyroxine 75 mcg tablet 75 mcg PO DAILY pantoprazole 40 mg tablet,delayed release (DR/EC) 40 mg PO DAILY fluticasone propionate 220 mcg/actuation HFA aerosol inhaler 1 puff INHALATION BID aspirin 81 mg tablet,delayed release (DR/EC) 81 mg PO DAILY cholecalciferol (vitamin D3) 25 mcg (1,000 unit) tablet 25 mcg PO DAILY Discontinued metoprolol tartrate 50 mg tablet 50 mg PO BID Discharge Orders: Discharge Order (Routine); Ordered 11/29/22 Ordered By: Ruht Emery Patient Education: Metoprolol (By mouth) (Lopressor, Toprol XL), Apixaban (By mouth) (Eliquis), A-fib (Atrial Fibrillation) (DC) Additional Instructions: I would like you to see [facility] for establishment of care and discussion of your atrial fibrillation. I've increased your metoprolol from 50 to 100mg twice a day. I'll have you start eliquis (BLOOD THINNER) twice a day. Activity Level: Activity as Tolerated Discharge Diet: Heart Healthy (2 gm sodium, low fat) Follow Up Appointments: [facility] [place] [Provider Group] - 12/06/22 (any provider - new patient -establish care, new AFIB admitted for RVR.) Abbe Zuluaga MD [Primary Care Provider] - 12/06/22 ([facility]) Forms: [employer] Info Instructions Hospital Course: HOSPITALIST DISCHARGE SUMMARY ATTENDING PHYSICIAN: Ruth Emery MD FINAL DIAGNOSIS: New atrial fibrillation, RVR - now rate controlled New anticoagulation HOSPITAL FOLLOWUP ISSUES: 1. Cardiology - establish care - AFIB management REFERRALS WHILE ADMITTED: None REFERRALS AFTER DISCHARGE: Cardiology BRIEF HOSPITAL COURSE: Patient is an 87-year-old female who presented in AFib with RVR. Attempted cardioversion failed in the emergency room. She was found to have low magnesium and low potassium. Once these electrolytes were replaced and we up titrated her beta-gustavo she did quite well. By day 2 she was ambulating the halls on metoprolol 100 mg b.i.d. which is up from her 50 mg b.i.d. prior to admission. She denied chest pain, shortness of breath, and palpitations with this exercise trial. We did complete an echocardiogram which was normal other than left atrial enlargement which is not unexpected. We recommended given her chads Vasc score chronic and continuous anticoagulation. My colleague called her pharmacy to find that her Eliquis was 45 dollars a month which Jacquelyn felt quite comfortable paying. She had a who is on warfarin and she hates that medication. I have asked her establish care with Cardiology. An appointment was made for her at [facility] [place] for early next week. She was happy to discharge on felt comfortable with our plan. DISCHARGE MEDICATIONS: See Reconciled list - SIGNIFICANT CHANGES: Increased metoprolol dose Eliquis 5 mg b.i.d. REVIEW OF SYSTEMS No new chest pain or dyspnea Pain controlled No voiding difficulties Tolerating diet challenge PHYSICAL EXAM: CONSTITUTIONAL: Alert, comfortable. NAD. VITAL SIGNS: see record. HEENT: Normocephalic, atraumatic. PERRL, EOMI, conjunctivae pink, no scleral icterus. Ears and nose externally normal. Pharynx normal. NECK: No JVD. No carotid bruit, no thyromegaly, no adenopathy. CHEST: Clear to auscultation bilaterally. HEART: S1 and S2 normal. Irregularly irregular Edema trace ABDOMEN: Soft, nontender. Normal bowel sounds. MUSCULOSKELETAL: No gross joint deformity or swelling. NEURO: Cranial nerves intact. Grossly intact. No asymmetric findings. SKIN: No rashes, petechiae, concerning changes PSYCHIATRIC: Mood euthymic. DISPOSITION: Home with family Time spent on discharge 37 minutes.
[2022-11-29 15:00] VITALS: PULSE 98
--- NOTE | 2022-11-29 15:42 | PC.NURSE ---
Nursing Care Hours: [id number] Pt this shift up independently in room. Calm and cooperative, alert and oriented. Pulse irregular and between 98-111. No c/o SOB or chest pain, dizziness or lightheadedness. Eating and drinking sufficiently BM per pt this morning. IV removed, discharge instructions went over. Wheeled out to vehicle in stable condition with family member
[2022-11-30 07:15] LABS: Magnesium* 1.7 mg/dL (1.5-2.6)
== END 2022-11-29 15:20 | disposition home or self-care (01) ==
LOC: ED 14:33 → MEDSURG 15:38
PROVIDERS: Family Medicine; Admitting Provider Family Medicine; Emergency Provider Emergency Medicine Emergency Medical Services; PCP Family Medicine; Visit Provider Family Medicine
DX: I48.91 Unspecified atrial fibrillation (principal); R00.0 Tachycardia, unspecified; E83.42 Hypomagnesemia; E87.6 Hypokalemia; M48.061 Spinal stenosis, lumbar region without neurogenic claudication; E11.9 Type 2 diabetes mellitus without complications; I10 Essential (primary) hypertension; E03.9 Hypothyroidism, unspecified; K21.9 Gastro-esophageal reflux disease without esophagitis; M54.9 Dorsalgia, unspecified; R60.0 Localized edema; Z79.82 Long term (current) use of aspirin; M62.81 Muscle weakness (generalized); F18.90 Inhalant use, unspecified, uncomplicated; E66.9 Obesity, unspecified; Z68.41 Body mass index [BMI] 40.0-44.9, adult; Z87.09 Personal history of other diseases of the respiratory system; Z90.89 Acquired absence of other organs; Z90.710 Acquired absence of both cervix and uterus; Z90.49 Acquired absence of other specified parts of digestive tract; Z66 Do not resuscitate
CPT/HCPCS: 00410; 36415; 71046; 80048; 82330; 82803; 83036; 83735; 83880; 84443; 84484; 85025; 85027; 86140; 87631; 92960; 93005; 93306; 94761; 97116; 97161; 99100; 99140; 99285; 99291; G0378; A9270; J1940; J2405; J2704; J3475; J7030

== ENCOUNTER 2022-12-08 21:06 | Outpatient (CLI) | payer MEDICARE, SELFPAY | END 2022-12-08 21:07 | disposition home or self-care (01) | LOC: AMB 12-11 09:27 | PROVIDERS: PCP Family Medicine; Visit Provider Family Medicine | DX: R53.1 Weakness (principal) | CPT/HCPCS: A0425; A0427 ==

== ENCOUNTER 2022-12-08 21:33 | Emergency (ER) | payer MEDICARE, SELFPAY ==
[2022-12-08] VITALS (13 sets, daily range): BP systolic 135–146; BP diastolic 96–110; PULSE 62–131; RESP 20; TEMP 36.6; O2SAT 93–96
--- NOTE | 2022-12-08 21:43 | ED_ITS ---
HPI - General Adult General Chief complaint: Weakness Stated complaint: weakness Time Seen by Provider: 12/08/22 21:39 Source: patient Mode of arrival: EMS Limitations: no limitations History of Present Illness HPI narrative: 87-year-old female coming in today complaining of not feeling well. She was hospitalized on 11/27-11/29 with AFib with RVR that did not cardiovert. She was started on Eliquis and her metoprolol was increased from 50 mg b.i.d. to 100 mg b.i.d.. She states that since discharge she has not felt well. She complains of generalized malaise. She states that today she felt like it got worse when she felt nauseated and had an episode where she became sweaty and so she called the ambulance. She denies any chest pain. She is not short of breath. She denies any abdominal discomfort. She denies blurry vision or changes in her hearing, no ringing in her ears. She states that she does not have a headache. She denies any urinary symptoms such as increased frequency, dysuria or urgency. She denies diarrhea or constipation. She states that her appetite has been normal today and she ate 3 meals without difficulty. She has not had any vomiting. She denies any changes in her ability to ambulate, she does ambulate with a cane. Again, her main concerns are just generalized malaise, which she describes as weakness, an episode where she became sweaty and ?lightheaded?. The episode lasted several minutes and then passed. She denies the room spinning. Again she felt nauseated but did not vomit. Related Data Home Medications Medication Instructions Recorded Confirmed aspirin 81 mg tablet,delayed 81 mg PO DAILY 11/27/22 11/27/22 release atorvastatin 10 mg tablet 10 mg PO DAILY 11/27/22 11/27/22 chlorthalidone 25 mg tablet 25 mg PO DAILY 11/27/22 11/27/22 cholecalciferol (vitamin D3) 25 25 mcg PO DAILY 11/27/22 11/27/22 mcg (1,000 unit) tablet fluticasone propionate 220 1 puff inhalation BID 11/27/22 11/27/22 mcg/actuation HFA aerosol inhaler levothyroxine 75 mcg tablet 75 mcg PO DAILY 11/27/22 11/27/22 losartan 50 mg tablet 50 mg PO DAILY 11/27/22 11/27/22 pantoprazole 40 mg tablet,delayed 40 mg PO DAILY 11/27/22 11/27/22 release potassium chloride 10 mEq 20 meq PO DAILY 11/27/22 11/27/22 tablet,extended release Previous Rx's Medication Instructions Recorded apixaban 5 mg tablet (Eliquis) 5 mg PO BID #60 tabs 11/29/22 metoprolol tartrate 100 mg tablet 100 mg PO BID #60 tabs 11/29/22 Allergies Allergy/AdvReac Type Severity Reaction Status Date / Time codeine Allergy Verified 11/27/22 11:49 lisinopril Allergy Verified 11/27/22 11:49 Review of Systems Status of ROS: Reports: 10 or more systems reviewed and unremarkable except as noted in History and below [facility] Medical History Spinal stenosis of lumbar region ?M48.061 - Spinal stenosis, lumbar region without neurogenic claudication (ICD-10) Hypothyroidism ?E03.9 - Hypothyroidism, unspecified (ICD-10) Seasonal allergies ?J30.2 - Other seasonal allergic rhinitis (ICD-10) Asthma ?J45.909 - Unspecified asthma, uncomplicated (ICD-10) Sleep apnea ?G47.30 - Sleep apnea, unspecified (ICD-10) Morbid obesity ?E66.01 - Morbid (severe) obesity due to excess calories (ICD-10) Gastroesophageal reflux ?K21.9 - Gastro-esophageal reflux disease without esophagitis (ICD-10) Hypertension ?I10 - Essential (primary) hypertension (ICD-10) Diabetes mellitus ?E11.9 - Type 2 diabetes mellitus without complications (ICD-10) Surgical History History of tonsillectomy and adenoidectomy ?Z90.89 - Acquired absence of other organs (ICD-10) History of abdominal hysterectomy ?Z90.710 - Acquired absence of both cervix and uterus (ICD-10) History of cholecystectomy ?Z90.49 - Acquired absence of other specified parts of digestive tract (ICD- 10) History of appendectomy ?Z90.49 - Acquired absence of other specified parts of digestive tract (ICD- 10) Family History Mother Polycythemia vera Father Prostate cancer Social History Narrative: She lives in [place] with her disabled son and [id number].. She reports generally this is going well for her. Her son Torres who also lives in [place] is healthcare power of assistant district attorney. Her code status is DNR. She is a nonsmoker and rarely drinks alcohol. Highest level of school completed/degree received: high school graduate Smoking Status: Never smoker How often do you have a drink containing alcohol: monthly or less How often do you have six or more drinks on one occasion: Never AUDIT-C Alcohol total score: 1 Non-prescribed substance use: denies use Caffeine: Yes (Coffee 4 cups /day) service: No Exam Narrative: Exam Narrative: Overweight, well-developed patient in no acute distress. Alert and oriented x3. Answers questions appropriately. Mood and affect are appropriate. Thoughts are goal oriented and rational. No tangential or magical thinking noted. Patient speaks in full sentences without needing to catch her breath. Speech is not slurred or pressured. HEENT: Normocephalic atraumatic. Pupils are equally round reactive to light. Extraocular muscles are intact. Conjunctivae are moist without any icterus noted. She has mild ptosis of the left eyelid. Moist mucous membranes. Neck is supple. Cardiovascular: Heart is regular rate and rhythm S1 and S2 are present without any murmurs. Lungs: Clear to auscultation bilaterally no wheezes rhonchi or rales are appreciated. Patient takes deep breaths without any discomfort. Abdomen: Soft and nontender nondistended with normal bowel sounds. Extremities: Bilateral lower extremities show trace edema. Normal DP and PT pulses. Skin: Well perfused without any obvious rashes. Const: Vital Signs, click to edit/add: Vital Signs - 24 hr 12/08/22 21:40 12/08/22 21:42 12/08/22 21:51 Temperature 97.8 F Pulse Rate 62 Pulse Rate [Left P ulse Oximeter] 64 Respiratory Rate 20 Blood Pressure Blood Pressure [Ri ght Upper Arm] 146/96 H Pulse Oximetry 93 93 94 Oxygen Delivery Me thod Room Air 12/08/22 22:00 12/08/22 22:15 12/08/22 22:30 Temperature Pulse Rate 65 63 66 Pulse Rate [Left P ulse Oximeter] Respiratory Rate Blood Pressure Blood Pressure [Ri ght Upper Arm] Pulse Oximetry 93 93 94 Oxygen Delivery Me thod 12/08/22 22:48 12/08/22 23:00 12/08/22 23:01 Temperature Pulse Rate 70 120 H 115 H Pulse Rate [Left P ulse Oximeter] Respiratory Rate Blood Pressure 143/110 H Blood Pressure [Ri ght Upper Arm] Pulse Oximetry 94 96 95 Oxygen Delivery Me thod 12/08/22 23:02 12/08/22 23:15 12/08/22 23:30 Temperature Pulse Rate 109 H 131 H 122 H Pulse Rate [Left P ulse Oximeter] Respiratory Rate Blood Pressure 135/99 H Blood Pressure [Ri ght Upper Arm] Pulse Oximetry 95 95 96 Oxygen Delivery Me thod 12/08/22 23:32 Temperature Pulse Rate 122 H Pulse Rate [Left P ulse Oximeter] Respiratory Rate Blood Pressure 139/99 H Blood Pressure [Ri ght Upper Arm] Pulse Oximetry 93 Oxygen Delivery Me thod Course Course Hospital Course: IV was established 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 EKG was obtained, read by me, shows normal sinus rhythm with a pulse of 65. Labs were drawn and were unremarkable. Repeat troponin unchanged. While patient was here she did flipped back into atrial fibrillation with a pulse of 120. When she went into atrial fibrillation she actually felt better. Repeat EKG at that time shows atrial fibrillation with a pulse of 123. Pulse fluctuated between 110 and 130's. She was subsequently given Cardizem 10 mg IV which brought her pulse down to around 100 and patient remained feeling well. Unfortunately, her magnesium was again low at 1.4, therefore we replaced her magnesium with 2 g of IV magnesium while in the ED today. Vital Signs Vital signs: Initial Vital Signs Pulse Oximetry 93 12/08/22 21:40 Vital Signs Pulse Oximetry 93 12/08/22 21:40 Temperature 97.8 F 12/08/22 21:42 Pulse Rate 104 H 12/09/22 02:02 Respiratory Rate 20 12/08/22 21:42 Blood Pressure 125/102 H 12/09/22 02:01 Pulse Oximetry 95 12/09/22 02:02 Oxygen Delivery Method Room Air 12/08/22 21:42 Medical Decision Making MDM Narrative Medical decision making narrative: 87-year-old female atrial fibrillation. Had an episode where she did not feel well and presented in normal sinus rhythm with a pulse of 65 and then felt better when she fell back into atrial fibrillation. Likely her pulses too slow on the elevated dose of metoprolol , hence the episode of feeling unwell. She does have an appointment with her doctor this coming week already scheduled she is encouraged to keep that. Encouraged to stay well hydrated as well. Hypomagnesemia, replaced in the ED today does seem to be a recurrent issue for her. She will need to follow-up with her primary care provider to discuss this further. Medical Records Medical records reviewed: Yes I reviewed the patient's medical records Lab Data Lab results reviewed: Yes I reviewed the patient's lab results Labs: Lab Results 12/08/22 12/08/22 12/08/22 Range/Units 21:50 21:52 22:51 WBC 8.39 (4.50-11.00) K/uL RBC 3.91 L (4.00-5.20) m/uL Hgb 12.0 (12.0-16.0) gm/dL Hct 37.5 (33.0-51.0) % MCV 96 (80-100) fL MCH 31 (26-34) pg MCHC 32 (32-36) gm/dL RDW Coeff of [place] 13.2 (11.5-15.5) % Plt Count 254 (140-440) K/uL Neut % (Auto) 61.2 (42.0-72.0) % Lymph % (Auto) 25.6 (20-44) % [place] % (Auto) 8.1 (0.0-11.0) % Eos % (Auto) 4.3 (0.0-7.0) % Baso % (Auto) 0.1 (0.0-3.0) % Neut # (Auto) 5.13 (1.7-7.0) K/uL Lymph # (Auto) 2.15 (0.90-2.90) K/uL [place] # (Auto) 0.70 (0.00-0.90) K/UL Eos # (Auto) 0.36 (0.00-0.50) K/uL Baso # (Auto) 0.01 (0.00-0.30) K/uL ESR 18 (2-20) mm/hr Sodium 137 (135-149) mmol/L Potassium 3.8 (3.6-5.1) mmol/L Chloride 101 (96-114) mmol/L Carbon Dioxide 28 (20-32) mmol/L BUN 20 (7-30) mg/dL Creatinine 1.0 (0.5-1.5) mg/dL Estimated GFR 55 ml/min Glucose 104 (60-115) mg/dL Lactate 1.2 (0.5-1.9) mmol/L Calcium 9.3 (8.4-10.6) mg/dL Magnesium (1.5-2.6) mg/dL Total Bilirubin 1.3 (0.1-1.5) mg/dL Direct Bilirubin 0.0 (0.0-0.5) mg/dL AST 26 (12-35) U/L ALT 20 (4-35) U/L Alkaline Phosphatase 58 (40-150) U/L Troponin I < 0.01 L (0.01-0.04) ng/mL C-Reactive Protein 0.7 (0.5-1.0) mg/dL NT-Pro-B Natriuret Pep 1080 pg/mL Total Protein 7.1 (6.0-8.3) g/dL Albumin 4.2 (3.3-5.0) g/dL Urine Color Yellow (Yellow) Urine Appearance Cloudy A (Clear) Urine pH 6.0 (5.0-8.5) Ur Specific [place] >= 1.030 (1.000-1.030) Urine Protein 2+ A (Negative) Urine Glucose (UA) Negative (Negative) Urine Ketones Negative (Negative) Urine Blood 3+ A (Negative) Urine Nitrite Negative (Negative) Urine Bilirubin Negative (Negative) Urine Urobilinogen 1.0 (0.2-1.0) Ur Leukocyte Esterase Trace A (Negative) Urine RBC 25-50 A (0-2) Urine WBC 10-25 A (0-5) Ur Squamous Epith Cells Many A (None-Few) Amorphous Sediment Few A (None) Urine Bacteria Many A (None) Urine Mucus Moderate A (None) POC Troponin I 0.01 (0.01-0.04) ng/ml 12/08/22 12/08/22 Range/Units 23:20 Unknown WBC (4.50-11.00) K/uL RBC (4.00-5.20) m/uL Hgb (12.0-16.0) gm/dL Hct (33.0-51.0) % MCV (80-100) fL MCH (26-34) pg MCHC (32-36) gm/dL RDW Coeff of [place] (11.5-15.5) % Plt Count (140-440) K/uL Neut % (Auto) (42.0-72.0) % Lymph % (Auto) (20-44) % [place] % (Auto) (0.0-11.0) % Eos % (Auto) (0.0-7.0) % Baso % (Auto) (0.0-3.0) % Neut # (Auto) (1.7-7.0) K/uL Lymph # (Auto) (0.90-2.90) K/uL [place] # (Auto) (0.00-0.90) K/UL Eos # (Auto) (0.00-0.50) K/uL Baso # (Auto) (0.00-0.30) K/uL ESR (2-20) mm/hr Sodium (135-149) mmol/L Potassium (3.6-5.1) mmol/L Chloride (96-114) mmol/L Carbon Dioxide (20-32) mmol/L BUN (7-30) mg/dL Creatinine (0.5-1.5) mg/dL Estimated GFR ml/min Glucose (60-115) mg/dL Lactate (0.5-1.9) mmol/L Calcium (8.4-10.6) mg/dL Magnesium 1.4 L (1.5-2.6) mg/dL Total Bilirubin (0.1-1.5) mg/dL Direct Bilirubin (0.0-0.5) mg/dL AST (12-35) U/L ALT (4-35) U/L Alkaline Phosphatase (40-150) U/L Troponin I (0.01-0.04) ng/mL C-Reactive Protein (0.5-1.0) mg/dL NT-Pro-B Natriuret Pep pg/mL Total Protein (6.0-8.3) g/dL Albumin (3.3-5.0) g/dL Urine Color (Yellow) Urine Appearance (Clear) Urine pH (5.0-8.5) Ur Specific [place] (1.000-1.030) Urine Protein (Negative) Urine Glucose (UA) (Negative) Urine Ketones (Negative) Urine Blood (Negative) Urine Nitrite (Negative) Urine Bilirubin (Negative) Urine Urobilinogen (0.2-1.0) Ur Leukocyte Esterase (Negative) Urine RBC (0-2) Urine WBC (0-5) Ur Squamous Epith Cells (None-Few) Amorphous Sediment (None) Urine Bacteria (None) Urine Mucus (None) POC Troponin I 0.00 L (0.01-0.04) ng/ml ECG Data Attestation: I personally reviewed and interpreted this ECG as follows: Discharge Plan Discharge Clinical Impression: Atrial fibrillation with rapid ventricular response, Hypomagnesemia Patient Disposition: Home, Self-Care Condition: Stable Additional Instructions: You will likely feeling unwell earlier because your pulse went back to regular sinus rhythm however because of the medications you are on your pulse was too slow. When you went back into atrial fibrillation you felt much better while you were in the ER. Recommend you stay well hydrated, continue on your current medications a follow-up with your primary care provider to discuss her symptoms. Lastly you also need to discuss your low magnesium levels which seem to be a recurring issue for you. Prescriptions: No Action losartan 50 mg tablet 50 mg PO DAILY atorvastatin 10 mg tablet 10 mg PO DAILY potassium chloride 10 mEq tablet extended release 20 meq PO DAILY chlorthalidone 25 mg tablet 25 mg PO DAILY levothyroxine 75 mcg tablet 75 mcg PO DAILY pantoprazole 40 mg tablet,delayed release (DR/EC) 40 mg PO DAILY fluticasone propionate 220 mcg/actuation HFA aerosol inhaler 1 puff INHALATION BID aspirin 81 mg tablet,delayed release (DR/EC) 81 mg PO DAILY cholecalciferol (vitamin D3) 25 mcg (1,000 unit) tablet 25 mcg PO DAILY metoprolol tartrate 100 mg Tablet 100 mg PO BID Qty: 60 0RF Rx Instructions: finish your home supply of 50mg metoprolol by taking two tabs(100mg) twice daily, when gone - new med is 100mg, so one tab BID Eliquis 5 mg Tablet 5 mg PO BID Qty: 60 0RF Follow Up/Referrals: Abbe Zuluaga MD [Primary Care Provider] - Stand Alone Forms: MyHealth Info Instructions
[2022-12-08 21:58] LABS: Lactate* 1.2 mmol/L (0.5-1.9)
[2022-12-08 22:07] LABS: Basophils Absolute Auto 0.01 K/uL (0.00-0.30); Basophils Percent Auto 0.1 % (0.0-3.0); Eosinophils Absolute Auto 0.36 K/uL (0.00-0.50); Eosinophils Percent Auto 4.3 % (0.0-7.0); Hematocrit 37.5 % (33.0-51.0); Immature Granulocytes Abs Auto 0.06 K/uL (0.00-0.30); Immature Granulocytes Pct Auto 0.7 %; Lymphocytes Absolute Auto 2.15 K/uL (0.90-2.90); Lymphocytes Percent Auto 25.6 % (20-44); Mean Corpuscular HGB Conc 32 gm/dL (32-36); Mean Corpuscular Hemoglobin 31 pg (26-34); Mean Corpuscular Volume 96 fL (80-100); Monocytes Percent Auto 8.1 % (0.0-11.0); Neutrophils Absolute Auto 5.13 K/uL (1.7-7.0); Neutrophils Percent Auto 61.2 % (42.0-72.0); Platelet Count* 254 K/uL (140-440); RDW Coefficient of Variation % 13.2 % (11.5-15.5); Red Blood Count 3.91 m/uL (4.00-5.20); Slide Review Reflex No; White Blood Count* 8.39 K/uL (4.50-11.00)
[2022-12-08 22:09] LABS: Troponin, Point-of-Care* 0.01 ng/ml (0.01-0.04)
[2022-12-08 22:27] LABS: Albumin* 4.2 g/dL (3.3-5.0); Chloride* 101 mmol/L (96-114); Sodium* 137 mmol/L (135-149)
[2022-12-08 22:28] LABS: Potassium* 3.8 mmol/L (3.6-5.1)
[2022-12-08 22:30] LABS: Alkaline Phosphatase* 58 U/L (40-150); Aspartate Amino Transferase* 26 U/L (12-35); Bilirubin Total* 1.3 mg/dL (0.1-1.5); Blood Urea Nitrogen* 20 mg/dL (7-30); Carbon Dioxide* 28 mmol/L (20-32); Estimated Glomerular Filt Rate 55 ml/min; Total Protein* 7.1 g/dL (6.0-8.3)
[2022-12-08 22:31] LABS: Alanine Aminotransferase* 20 U/L (4-35); Calcium* 9.3 mg/dL (8.4-10.6); Glucose* 104 mg/dL (60-115)
[2022-12-08 22:33] LABS: C Reactive Protein* 0.7 mg/dL (0.5-1.0)
[2022-12-08 22:43] LABS: Erythrocyte SedimentationRate* 18 mm/hr (2-20)
[2022-12-08 22:44] LABS: NT Pro B Type NatriureticPept* 1080 pg/mL; Troponin I* < 0.01 ng/mL (0.01-0.04)
[2022-12-08 22:58] LABS: Appearance Urine Cloudy (Clear); Bilirubin Urine Negative (Negative); Blood Urine 3+ (Negative); Color Urine Yellow (Yellow); Glucose Urine Negative (Negative); Ketones Urine Negative (Negative); Leukocyte Esterase Urine Trace (Negative); Nitrite Urine Negative (Negative); Protein Urine 2+ (Negative); Specific Gravity Urine >= 1.030 (1.000-1.030)
[2022-12-08 23:13] LABS: RBC Urine 25-50 (0-2)
[2022-12-08 23:14] LABS: Amorphous Sediment Urine Few; Bacteria Urine Many; Mucus Urine Moderate; Squamous Epithelial Cell Urine Many (None-Few)
[2022-12-08] MEDS: dilTIAZem 5 MG/ML inj 10 MG IVP (23:44)
[2022-12-08 23:55] LABS: Magnesium* 1.4 mg/dL (1.5-2.6)
[2022-12-09] VITALS (19 sets, daily range): BP systolic 110–135; BP diastolic 82–106; PULSE 80–122; O2SAT 92–95
[2022-12-09] MEDS: MAGNESIUM IV 2 GM/50 ML PIGGYBACK IVPB (00:07)
== END 2022-12-09 02:22 | disposition home or self-care (01) ==
PROVIDERS: Emergency Provider Family Medicine; PCP Family Medicine
DX: I48.91 Unspecified atrial fibrillation (principal); E83.42 Hypomagnesemia; R79.89 Other specified abnormal findings of blood chemistry
CPT/HCPCS: 36415; 80048; 80076; 81001; 83605; 83735; 83880; 84484; 85025; 85651; 86140; 87086; 93005; 94761; 96365; 96366; 96375; 99284; 99285; J3475

== ENCOUNTER 2023-07-11 07:23 | Outpatient (CLI) | payer MEDICARE, SELFPAY | END 2023-07-11 07:24 | disposition home or self-care (01) | LOC: AMB 07-14 04:07 | PROVIDERS: PCP Family Medicine; Visit Provider Family Medicine | DX: R07.89 Other chest pain (principal) | CPT/HCPCS: A0425; A0427 ==

== ENCOUNTER 2023-07-11 07:42 | Emergency (ER) | payer MEDICARE, SELFPAY ==
[2023-07-11] VITALS (31 sets, daily range): BP systolic 116–151; BP diastolic 55–72; PULSE 54–86; RESP 18; TEMP 36.4; O2SAT 89–97; BMI 37.7
--- NOTE | 2023-07-11 07:52 | CRLHL7_ITS ---
For Patients: As a result of the Century Cures Act, medical imaging exams and procedure reports are released immediately into your electronic medical record. You may view this report before your referring provider. If you have questions, please contact your health care provider. INDICATION: Stroke symptoms. TECHNIQUE: Head CT without contrast. COMPARISON: None. FINDINGS: CSF spaces: Within normal limits for age. Brain parenchyma and extra-axial spaces: There are nonspecific low attenuation white matter changes consistent with chronic microvascular disease. No sign of mass, hemorrhage, or midline shift. No dominant vascular territory acute stroke identified. Right occipital and left cerebellar encephalomalacia. Skull base and calvarium: The visualized paranasal sinuses and mastoid air cells demonstrate no acute or significant findings. The visualized orbits are grossly unremarkable. No skull fractures. IMPRESSION: No acute abnormality. Please note that all CT scans at this facility use dose modulation, iterative reconstruction, and/or weight-based dosing when appropriate to reduce radiation dose to as low as reasonably achievable. Dictated by Carlo Benito MD @ 07/11/2023 8:14:13 AM (Electronically Signed)
--- NOTE | 2023-07-11 08:23 | CRLHL7_ITS ---
For Patients: As a result of the Century Cures Act, medical imaging exams and procedure reports are released immediately into your electronic medical record. You may view this report before your referring provider. If you have questions, please contact your health care provider. CLINICAL HISTORY: Acute neurological deficit. TECHNIQUE: CTA head with contrast bolus tracking. 3D angiographic rendering using maximum intensity projection (MIP) and images permanently archived. COMPARISON: None available. FINDINGS: The petrous, cavernous, and supraclinoid segments of the internal carotid arteries are patent. The anterior and middle cerebral arteries are patent. The anterior communicating artery is visualized and is within normal limits. The intracranial vertebral arteries, basilar trunk, and posterior cerebral arteries are patent. No intracranial proximal large vessel occlusion. 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 Atherosclerotic calcification throughout the carotid siphons, with [id number] stenoses of the proximal cavernous right ICA and mild stenoses of the proximal cavernous left ICA and bilateral clinoid segments of the ICAs. No evidence of cerebral aneurysm. No findings to suggest an arterial-venous shunting lesion. The major dural venous sinuses and deep venous system are patent. IMPRESSION: Intracranial atherosclerotic disease without proximal large vessel occlusion, as above. Please note that all CT scans at this facility use dose modulation, iterative reconstruction, and/or weight-based dosing when appropriate to reduce radiation dose to as low as reasonably achievable. Dictated by Ned Dubois MD @ 07/11/2023 10:53:36 AM (Electronically Signed)
--- NOTE | 2023-07-11 08:23 | CRLHL7_ITS ---
For Patients: As a result of the Century Cures Act, medical imaging exams and procedure reports are released immediately into your electronic medical record. You may view this report before your referring provider. If you have questions, please contact your health care provider. CLINICAL HISTORY: Acute neurological deficit. TECHNIQUE: CTA neck with contrast bolus tracking. 3D angiographic rendering using maximum intensity projection (MIP) and images permanently archived. COMPARISON: None available. FINDINGS: The great vessels are patent. The common carotid arteries are patent. Mild (<50%) atherosclerotic stenosis of the proximal right ICA by NASCET criteria. No significant stenosis of the proximal left ICA. The more distal cervical ICAs are patent. The origins of the vertebral arteries are patent. The right vertebral artery is dominant in the left vertebral artery is hypoplastic. The cervical segments of the vertebral arteries are patent. IMPRESSION: Mild (<50%) atherosclerotic stenosis of the proximal right ICA by NASCET criteria. Please note that all CT scans at this facility use dose modulation, iterative reconstruction, and/or weight-based dosing when appropriate to reduce radiation dose to as low as reasonably achievable. Dictated by Ned Dubois MD @ 07/11/2023 10:46:27 AM (Electronically Signed)
--- NOTE | 2023-07-11 08:28 | ED_ITS ---
HPI - Dizziness General Date Seen: 07/11/23 Chief Complaint: Dizziness/Vertigo Stated Complaint: dizzy Time Seen by Provider: 07/11/23 08:12 Source: patient Mode of arrival: ambulatory Limitations: no limitations History of Present Illness HPI Narrative: Patient is a 87-year-old female with history of diabetes, AFib on Eliquis now in normal sinus rhythm status post cardioversion presenting to the emergency department for dizziness, headache, nausea. She states the symptoms 1st started when she woke up today at 03:00 to go to the bathroom. She noticed the symptoms were there soon as she woke up. She was able go the bathroom and laid back down. Symptoms were not resolving so she came to the emergency department. States she has had vertigo before but this seems different. Still feels a bit dizzy laying in bed but not as bad. Did notice the symptoms worsened when she was brought by ED cart to CT scanner. She states the dizziness feels more like she is moving side to side on a boat. She does have decreased peripheral vision in her left but states that it has been going on for a year and is not any worse today. Denies weakness, numbness, fevers, chills, chest pain, abdominal pain. Can not say for certain if symptoms worsen when she turns her head side to side Related Data Home Medications Medication Instructions Recorded Confirmed aspirin 81 mg tablet,delayed 81 mg PO DAILY 11/27/22 11/27/22 release atorvastatin 10 mg tablet 10 mg PO DAILY 11/27/22 11/27/22 chlorthalidone 25 mg tablet 25 mg PO DAILY 11/27/22 11/27/22 cholecalciferol (vitamin D3) 25 25 mcg PO DAILY 11/27/22 11/27/22 mcg (1,000 unit) tablet fluticasone propionate 220 1 puff inhalation BID 11/27/22 11/27/22 mcg/actuation HFA aerosol inhaler levothyroxine 75 mcg tablet 75 mcg PO DAILY 11/27/22 11/27/22 losartan 50 mg tablet 50 mg PO DAILY 11/27/22 11/27/22 pantoprazole 40 mg tablet,delayed 40 mg PO DAILY 11/27/22 11/27/22 release potassium chloride 10 mEq 20 meq PO DAILY 11/27/22 11/27/22 tablet,extended release Previous Rx's Medication Instructions Recorded apixaban 5 mg tablet (Eliquis) 5 mg PO BID #60 tabs 11/29/22 metoprolol tartrate 100 mg tablet 100 mg PO BID #60 tabs 11/29/22 meclizine 25 mg tablet 25 mg PO QID PRN dizziness #20 tabs 07/11/23 Allergies Allergy/AdvReac Type Severity Reaction Status Date / Time codeine Allergy Verified 11/27/22 11:49 lisinopril Allergy Verified 11/27/22 11:49 Review of Systems Status of ROS: Reports: 10 or more systems reviewed and unremarkable except as noted in History and below [facility] Medical History Spinal stenosis of lumbar region ?M48.061 - Spinal stenosis, lumbar region without neurogenic claudication (ICD-10) Hypothyroidism ?E03.9 - Hypothyroidism, unspecified (ICD-10) Seasonal allergies ?J30.2 - Other seasonal allergic rhinitis (ICD-10) Asthma ?J45.909 - Unspecified asthma, uncomplicated (ICD-10) Sleep apnea ?G47.30 - Sleep apnea, unspecified (ICD-10) Morbid obesity ?E66.01 - Morbid (severe) obesity due to excess calories (ICD-10) Gastroesophageal reflux ?K21.9 - Gastro-esophageal reflux disease without esophagitis (ICD-10) Hypertension ?I10 - Essential (primary) hypertension (ICD-10) Diabetes mellitus ?E11.9 - Type 2 diabetes mellitus without complications (ICD-10) Surgical History History of tonsillectomy and adenoidectomy ?Z90.89 - Acquired absence of other organs (ICD-10) History of abdominal hysterectomy ?Z90.710 - Acquired absence of both cervix and uterus (ICD-10) History of cholecystectomy ?Z90.49 - Acquired absence of other specified parts of digestive tract (ICD- 10) History of appendectomy ?Z90.49 - Acquired absence of other specified parts of digestive tract (ICD- 10) Family History Mother Polycythemia vera Father Prostate cancer Social History Narrative: She lives in [place] with her disabled son and [id number].. She reports generally this is going well for her. Her son Torres who also lives in [place] is healthcare power of energy attorney. Her code status is DNR. She is a nonsmoker and rarely drinks alcohol. Highest level of school completed/degree received: high school graduate Smoking Status: Never smoker How often do you have a drink containing alcohol: never How often do you have six or more drinks on one occasion: Never AUDIT-C Alcohol total score: 0 Non-prescribed substance use: denies use Caffeine: Yes (Coffee 4 cups /day) service: No Exam Narrative: Exam Narrative: Const: Well-nourished, Well-developed, in mild distress Eyes: PERRL, no conjunctival injection, and symmetrical lids HENT: Atraumatic external nose and ears. Moist mucous membranes. Neck: Symmetric, trachea midline, No thyromegaly. CVS: RRR, No murmurs or gallops. Peripheral pulses 2+ and equal in all extremities RESP: Unlabored respiratory effort. Clear to auscultation bilaterally. GI: Nontender/Nondistended, No rebound or guarding. MSK:Extremities w/o deformity, Normal Active ROM Skin: Warm, Dry. No rashes or lesions. Neuro: Normal Muscle tone, Cranial nerves 2-12 grossly intact other than decreased peripheral vision on left, normal [id number], normal [id number], normal gait, normal strength 5/5 upper lower extremities bilaterally, normal sensation upper and lower extremities bilaterally, normal rapid alternating movements. Psych: Awake, Alert, & Oriented x3. Appropriate mood and affect. Const: Vital Signs, click to edit/add: Vital Signs - 24 hr 07/11/23 07:54 07/11/23 07:58 07/11/23 08:07 Temperature 97.6 F Pulse Rate 65 64 Pulse Rate [Pulse Oximeter] 86 Respiratory Rate 18 Blood Pressure 151/69 H Blood Pressure [Ri ght Upper Arm] 151/69 H Pulse Oximetry 94 97 96 Oxygen Delivery Me thod Room Air 07/11/23 08:16 07/11/23 08:17 07/11/23 08:30 Temperature Pulse Rate 60 58 L 59 L Pulse Rate [Pulse Oximeter] Respiratory Rate Blood Pressure 137/66 Blood Pressure [Ri ght Upper Arm] Pulse Oximetry 94 94 90 Oxygen Delivery Me thod 07/11/23 08:32 07/11/23 08:45 07/11/23 08:47 Temperature Pulse Rate 58 L 59 L 57 L Pulse Rate [Pulse Oximeter] Respiratory Rate Blood Pressure 141/62 H 146/69 H Blood Pressure [Ri ght Upper Arm] Pulse Oximetry 89 95 94 Oxygen Delivery Mt thod 07/11/23 08:48 07/11/23 09:00 07/11/23 09:02 Temperature Pulse Rate 58 L 56 L 54 L Pulse Rate [Pulse Oximeter] Respiratory Rate Blood Pressure 119/56 L Blood Pressure [Ri ght Upper Arm] Pulse Oximetry 93 90 89 [facility] Delivery [facility] 07/11/23 09:03 07/11/23 09:15 07/11/23 09:16 Temperature Pulse Rate 54 L 55 L 55 L Pulse Rate [Pulse Oximeter] Respiratory Rate Blood Pressure 116/55 L Blood Pressure [Ri ght Upper Arm] Pulse Oximetry 89 93 95 Oxygen Delivery [facility] 07/11/23 09:39 07/11/23 09:45 07/11/23 09:46 Temperature Pulse Rate 67 59 L 58 L Pulse Rate [Pulse Oximeter] Respiratory Rate Blood Pressure 140/65 H Blood Pressure [Ri ght Upper Arm] Pulse Oximetry 91 94 93 Oxygen Delivery [facility] 07/11/23 09:47 07/11/23 10:00 07/11/23 10:01 Temperature Pulse Rate 58 L 60 59 L Pulse Rate [Pulse Oximeter] Respiratory Rate Blood Pressure 142/66 H Blood Pressure [Ri ght Upper Arm] Pulse Oximetry 94 96 94 Oxygen Delivery [facility] 07/11/23 10:02 07/11/23 10:24 07/11/23 10:30 Temperature Pulse Rate 58 L 74 62 Pulse Rate [Pulse Oximeter] Respiratory Rate Blood Pressure Blood Pressure [Ri ght Upper Arm] Pulse Oximetry 94 92 93 Oxygen Delivery [facility] 07/11/23 10:32 07/11/23 10:33 07/11/23 10:45 Temperature Pulse Rate 62 61 57 L Pulse Rate [Pulse Oximeter] Respiratory Rate Blood Pressure 146/72 H Blood Pressure [Ri ght Upper Arm] Pulse Oximetry 93 96 92 Oxygen Delivery [facility] 07/11/23 11:00 07/11/23 11:02 Temperature Pulse Rate 57 L 57 L Pulse Rate [Pulse Oximeter] Respiratory Rate Blood Pressure 136/63 Blood Pressure [Ri ght Upper Arm] Pulse Oximetry 91 93 Oxygen Delivery Me thod Course Vital Signs Vital signs: Initial Vital Signs Pulse Rate 65 07/11/23 07:54 Blood Pressure 151/69 H 07/11/23 07:54 Blood Pressure Mean 96 07/11/23 07:54 Pulse Oximetry 94 07/11/23 07:54 Vital Signs Pulse Rate 65 07/11/23 07:54 Blood Pressure 151/69 H 07/11/23 07:54 Pulse Oximetry 94 07/11/23 07:54 Temperature 97.6 F 07/11/23 07:58 Pulse Rate 57 L 07/11/23 11:02 Respiratory Rate 18 07/11/23 07:58 Blood Pressure 136/63 07/11/23 11:02 Pulse Oximetry 93 07/11/23 11:02 Oxygen Delivery Method Room Air 07/11/23 07:58 Medications Administered Medications: Discontinued Medications Generic Name Dose Route Start Last Admin Trade Name Hiramq PRN Reason Stop Dose Admin Diphenhydramine HCl 25 mg 07/11/23 08:13 07/11/23 08:43 Diphenhydramine 50 Mg/Ml Inj IVP 07/11/23 08:14 25 mg ONCE ONE Administration Lactated Ringer's 1,000 mls @ 1,000 mls/hr 07/11/23 08:13 07/11/23 10:02 Lactated Ringers 1000 Ml IV 07/11/23 09:12 Infused .Q1H ONE Infusion Meclizine HCl 25 mg 07/11/23 08:13 07/11/23 08:40 Meclizine Hcl 25 Mg Tablet PO 07/11/23 08:14 25 mg ONCE ONE Administration Metoclopramide HCl 10 mg 07/11/23 08:13 07/11/23 08:45 Metoclopramide Hcl 5 Mg/Ml Inj IVP 07/11/23 08:14 10 mg ONCE ONE Administration MDM - Dizziness MDM Narrative Medical decision making narrative: Patient is a 87-year-old female presenting to emergency department for concern for her dizziness. There is concern for posterior circulation stroke causing the symptoms but does appear to be more vertigo in nature. She is outside the window as she woke up with the symptoms is 5-1/2 hours ago. Code stroke called by nursing staff and patient was brought to get a head CT. When patient returned I spoke to the patient further and did a thorough exam. NIH stroke scale is 0. I spoke to Dr. De Anda and she is agreeable with my plan to treat this patient for vertical 1st to see what happens considering she is outside the window for thrombolytics. She did recommend MRI if symptoms are not improving. Patient does not have a pacemaker so we can do this if needed. Of note I tried to do the hints exam but the head impulse made her very nauseated and she did not tolerate it. Test of skew and nystagmus were non concerning for central cause of dizziness. Patient's lab work returned showing no concerning abnormalities. Urine does show potential for UTI but it was contaminated and she is not having any urinary symptoms so I will not treat for this. COVID and flu were negative. Head CT returned showing no concerning abnormalities. She was treated for a headache with migraine cocktail plus was given meclizine for dizziness. After this she went to CTA and she initially had some dizziness when she got back up again that resolved when she way down. We did ambulate her again after this and symptoms seem to be resolved at this time. CTA head and neck showed no concerning findings. I did speak to her son who states she will have episodes of nausea and vomiting every few weeks but she has not been complaining about any dizziness at this time. She lives with her son and his . Patient is doing well we discharged home. She is agreeable with this plan. I spoke to her son, whom she lives with, and up stated him on all this. Lab Data Labs: Lab Results 07/11/23 07/11/23 07/11/23 Range/Units 08:13 08:15 08:23 WBC 5.98 (4.50-11.00) K/uL RBC 3.96 L (4.00-5.20) m/uL Hgb 12.6 (12.0-16.0) gm/dL Hct 39.1 (33.0-51.0) % MCV 99 (80-100) fL MCH 32 (26-34) pg MCHC 32 (32-36) gm/dL RDW Coeff of Boni 13.0 (11.5-15.5) % Plt Count 195 (140-440) K/uL Neut % (Auto) 73.4 H (42.0-72.0) % Lymph % (Auto) 16.6 L (20-44) % [place] % (Auto) 7.2 (0.0-11.0) % Eos % (Auto) 2.3 (0.0-7.0) % Baso % (Auto) 0.2 (0.0-3.0) % Neut # (Auto) 4.40 (1.7-7.0) K/uL Lymph # (Auto) 1.00 (0.90-2.90) K/uL [place] # (Auto) 0.40 (0.00-0.90) K/UL Eos # (Auto) 0.14 (0.00-0.50) K/uL Baso # (Auto) 0.01 (0.00-0.30) K/uL Abs Immat Gran (auto) 0.02 (0.00-0.30) K/uL Imm/Tot Granulo (auto) 0.3 % INR 1.19 H (0.91-1.10) APTT 32 (23-33) Seconds Sodium 139 (135-149) mmol/L Potassium 4.0 (3.6-5.1) mmol/L Chloride 105 (96-114) mmol/L Carbon Dioxide 25 (20-32) mmol/L Anion Gap 9 (7-15) mEq/L BUN 21 (7-30) mg/dL Creatinine 1.4 (0.5-1.5) mg/dL Estimated Creat Clear 20.34 Estimated GFR 36 ml/min Glucose 125 H (60-115) mg/dL Calcium 9.3 (8.4-10.6) mg/dL Magnesium 2.2 (1.5-2.6) mg/dL Total Bilirubin 1.1 (0.1-1.5) mg/dL AST 26 (12-35) U/L ALT 22 (4-35) U/L Alkaline Phosphatase 80 (40-150) U/L Total Protein 7.0 (6.0-8.3) g/dL Albumin 4.4 (3.3-5.0) g/dL Urine Color (Yellow) Urine Appearance (Clear) Urine pH (5.0-8.5) Ur Specific [place] (1.000-1.030) Urine Protein (Negative) Urine Glucose (UA) (Negative) Urine Ketones (Negative) Urine Blood (Negative) Urine Nitrite (Negative) Urine Bilirubin (Negative) Urine Urobilinogen (0.2-1.0) Ur Leukocyte Esterase (Negative) Urine RBC (0-2) Urine WBC (0-5) Ur Squamous Epith Cells (None-Few) Urine Bacteria (None) SARS-CoV-2 (PCR) Negative SARS-CoV-2 (Negative) Influenza Type A (PCR) Negative PCR FLU A (Negative) Influenza Type B (PCR) Negative PCR FLU B (Negative) POC Creatinine 1.7 H (0.6-1.3) mg/dl POC Troponin I 0.01 (0.01-0.04) ng/ml 07/11/23 Range/Units 10:20 WBC (4.50-11.00) K/uL RBC (4.00-5.20) m/uL Hgb (12.0-16.0) gm/dL Hct (33.0-51.0) % MCV (80-100) fL MCH (26-34) pg MCHC (32-36) gm/dL RDW Coeff of Boni (11.5-15.5) % Plt Count (140-440) K/uL Neut % (Auto) (42.0-72.0) % Lymph % (Auto) (20-44) % [place] % (Auto) (0.0-11.0) % Eos % (Auto) (0.0-7.0) % Baso % (Auto) (0.0-3.0) % Neut # (Auto) (1.7-7.0) K/uL Lymph # (Auto) (0.90-2.90) K/uL [place] # (Auto) (0.00-0.90) K/UL Eos # (Auto) (0.00-0.50) K/uL Baso # (Auto) (0.00-0.30) K/uL Abs Immat Gran (auto) (0.00-0.30) K/uL Imm/Tot Granulo (auto) % INR (0.91-1.10) APTT (23-33) Seconds Sodium (135-149) mmol/L Potassium (3.6-5.1) mmol/L Chloride (96-114) mmol/L Carbon Dioxide (20-32) mmol/L Anion Gap (7-15) mEq/L BUN (7-30) mg/dL Creatinine (0.5-1.5) mg/dL Estimated Creat Clear Estimated GFR ml/min Glucose (60-115) mg/dL Calcium (8.4-10.6) mg/dL Magnesium (1.5-2.6) mg/dL Total Bilirubin (0.1-1.5) mg/dL AST (12-35) U/L ALT (4-35) U/L Alkaline Phosphatase (40-150) U/L Total Protein (6.0-8.3) g/dL Albumin (3.3-5.0) g/dL Urine Color Yellow (Yellow) Urine Appearance Slightly Cloudy A (Clear) Urine pH 7.0 (5.0-8.5) Ur Specific [place] 1.015 (1.000-1.030) Urine Protein Negative (Negative) Urine Glucose (UA) 2+ A (Negative) Urine Ketones Negative (Negative) Urine Blood Trace-intact A (Negative) Urine Nitrite Negative (Negative) Urine Bilirubin Negative (Negative) Urine Urobilinogen 0.2 (0.2-1.0) Ur Leukocyte Esterase Trace A (Negative) Urine RBC 2-5 A (0-2) Urine WBC 2-5 (0-5) Ur Squamous Epith Cells Moderate A (None-Few) Urine Bacteria Moderate A (None) SARS-CoV-2 (PCR) (Negative) Influenza Type A (PCR) (Negative) Influenza Type B (PCR) (Negative) POC Creatinine (0.6-1.3) mg/dl POC Troponin I (0.01-0.04) ng/ml Imaging Data CT scan head: Radiologist's impression: No acute abnormality. Please note that all CT scans at this facility use dose modulation, iterative reconstruction, and/or weight-based dosing when appropriate to reduce radiation dose to as low as reasonably achievable. Dictated by Carlo Benito MD @ 07/11/2023 8:14:13 AM CTA head: Radiologist's impression: Intracranial atherosclerotic disease without proximal large vessel occlusion, as above. Please note that all CT scans at this facility use dose modulation, iterative reconstruction, and/or weight-based dosing when appropriate to reduce radiation dose to as low as reasonably achievable. Dictated by Ned Dubois MD @ 07/11/2023 10:53:36 AM CTA neck: Radiologist's impression: Mild (<50%) atherosclerotic stenosis of the proximal right ICA by NASCET criteria. Please note that all CT scans at this facility use dose modulation, iterative reconstruction, and/or weight-based dosing when appropriate to reduce radiation dose to as low as reasonably achievable. Dictated by Ned Dubois MD @ 07/11/2023 10:46:27 AM ECG Data Attestation: I personally reviewed and interpreted this ECG as follows: Prior ECG tracings: available for review Interpretation: Normal sinus rhythm of a rate of 64 beats per minute, normal intervals, normal axis, no ST or T-wave abnormalities. AFib no longer seen when compared to previous EKGs Discharge Plan Discharge Clinical Impression: Vertigo Headache Qualifiers: Headache type: other headache syndrome Qualified Code(s): G44.89 - Other headache syndrome Patient Disposition: Home, Self-Care Condition: Improved Instructions: Dizziness (ED) Additional Instructions: Take the meclizine as needed for your dizziness. Take Tylenol ibuprofen for headache. Return to the emergency department for new worsening symptoms Prescriptions: New meclizine 25 mg tablet 25 mg PO QID PRN (Reason: dizziness) Qty: 20 0RF No Action losartan 50 mg tablet 50 mg PO DAILY atorvastatin 10 mg tablet 10 mg PO DAILY potassium chloride 10 mEq tablet extended release 20 meq PO DAILY chlorthalidone 25 mg tablet 25 mg PO DAILY levothyroxine 75 mcg tablet 75 mcg PO DAILY pantoprazole 40 mg tablet,delayed release (DR/EC) 40 mg PO DAILY fluticasone propionate 220 mcg/actuation HFA aerosol inhaler 1 puff INHALATION BID aspirin 81 mg tablet,delayed release (DR/EC) 81 mg PO DAILY cholecalciferol (vitamin D3) 25 mcg (1,000 unit) tablet 25 mcg PO DAILY metoprolol tartrate 100 mg Tablet 100 mg PO BID Qty: 60 0RF Rx Instructions: finish your home supply of 50mg metoprolol by taking two tabs(100mg) twice daily, when gone - new med is 100mg, so one tab BID Eliquis 5 mg Tablet 5 mg PO BID Qty: 60 0RF Follow Up/Referrals: Abbe Zuluaga MD [Primary Care Provider] - Stand Alone Forms: [employer] Info Instructions
[2023-07-11 08:29] LABS: Basophils Absolute Auto 0.01 K/uL (0.00-0.30); Basophils Percent Auto 0.2 % (0.0-3.0); Eosinophils Absolute Auto 0.14 K/uL (0.00-0.50); Eosinophils Percent Auto 2.3 % (0.0-7.0); Hematocrit 39.1 % (33.0-51.0); Hemoglobin* 12.6 gm/dL (12.0-16.0); Immature Granulocytes Abs Auto 0.02 K/uL (0.00-0.30); Immature Granulocytes Pct Auto 0.3 %; Lymphocytes Percent Auto 16.6 % (20-44); Mean Corpuscular HGB Conc 32 gm/dL (32-36); Mean Corpuscular Hemoglobin 32 pg (26-34); Mean Corpuscular Volume 99 fL (80-100); Monocytes Percent Auto 7.2 % (0.0-11.0); Neutrophils Percent Auto 73.4 % (42.0-72.0); Platelet Count* 195 K/uL (140-440); Red Blood Count 3.96 m/uL (4.00-5.20); White Blood Count* 5.98 K/uL (4.50-11.00)
[2023-07-11 08:36] LABS: Troponin, Point-of-Care* 0.01 ng/ml (0.01-0.04)
[2023-07-11 08:36] LABS: Creatinine, Point-of-Care* 1.7 mg/dl (0.6-1.3)
[2023-07-11] MEDS: MECLIZINE HCL 25 MG TABLET PO (08:40)
[2023-07-11 08:42] LABS: Slide Review Reflex No
[2023-07-11] MEDS: diphenhydrAMINE 50 MG/ML inj 25 MG IVP (08:43)
[2023-07-11] MEDS: LACTATED RINGERS 1000 ML 1,000 ML IV (08:43)
[2023-07-11] MEDS: METOCLOPRAMIDE HCL 5 MG/ML INJ 10 MG IVP (08:45)
[2023-07-11 08:46] LABS: Albumin* 4.4 g/dL (3.3-5.0); Chloride* 105 mmol/L (96-114)
[2023-07-11 08:47] LABS: Sodium* 139 mmol/L (135-149)
[2023-07-11 08:49] LABS: Alanine Aminotransferase* 22 U/L (4-35); Alkaline Phosphatase* 80 U/L (40-150); Anion Gap 9 mEq/L (7-15); Aspartate Amino Transferase* 26 U/L (12-35); Bilirubin Total* 1.1 mg/dL (0.1-1.5); Blood Urea Nitrogen* 21 mg/dL (7-30); Carbon Dioxide* 25 mmol/L (20-32); Creatinine* 1.4 mg/dL (0.5-1.5); Est. Creatinine Clearance* 20.34; Estimated Glomerular Filt Rate 36 ml/min
[2023-07-11 08:50] LABS: Calcium* 9.3 mg/dL (8.4-10.6); Glucose* 125 mg/dL (60-115); Magnesium* 2.2 mg/dL (1.5-2.6)
[2023-07-11 08:51] LABS: INR 1.19 (0.91-1.10); Prothrombin Time 15.9 Seconds
[2023-07-11 08:52] LABS: Partial Thromboplastin Time* 32 Seconds (23-33)
--- NOTE | 2023-07-11 09:07 | ED.NURSE ---
Pt reports substantial improvement in symptoms; pt states she is less dizzy and headache is now a 2/10 pain (it was 9/10). notified.
[2023-07-11 09:09] LABS: PCR FLU A Negative PCR FLU A (Negative); PCR FLU B Negative PCR FLU B (Negative); SARS PCR* Negative SARS-CoV-2 (Negative)
--- NOTE | 2023-07-11 10:25 | ED.NURSE ---
Pt ambulatory independently to the restroom. Pt provided UA. Pt tolerated ambulation well, notified.
[2023-07-11 10:27] LABS: Appearance Urine Slightly Cloudy (Clear); Bilirubin Urine Negative (Negative); Blood Urine Trace-intact (Negative); Color Urine Yellow (Yellow); Glucose Urine 2+ (Negative); Ketones Urine Negative (Negative); Leukocyte Esterase Urine Trace (Negative); Nitrite Urine Negative (Negative); Protein Urine Negative (Negative); Specific Gravity Urine 1.015 (1.000-1.030); Urobilinogen Urine 0.2 (0.2-1.0)
[2023-07-11 10:38] LABS: Squamous Epithelial Cell Urine Moderate (None-Few)
[2023-07-11 10:39] LABS: Bacteria Urine Moderate
== END 2023-07-11 11:27 | disposition home or self-care (01) ==
PROVIDERS: Emergency Provider Student in an Organized Health Care Education/Training Program; PCP Family Medicine
DX: R42 Dizziness and giddiness (principal); R51.9 Headache, unspecified; I48.91 Unspecified atrial fibrillation
CPT/HCPCS: 36415; 70450; 70496; 70498; 80053; 81001; 82565; 83735; 84484; 85025; 85610; 85730; 87086; 87631; 93005; 96361; 96374; 96375; 99283; 99284; 99285; 99291; A9270; J1200; J2765; J7120; Q9967

== ENCOUNTER 2024-04-18 07:33 | Emergency (ER) | payer MEDICARE, SELFPAY ==
[2024-04-18 07:38] VITALS: BP 160/66; PULSE 55; RESP 20; TEMP 36.4; O2SAT 94; BMI 39.1
--- NOTE | 2024-04-18 07:59 | ED_ITS ---
HPI - General Adult General Chief complaint: Epistaxis/Nosebleed Stated complaint: nose bleed,on blood thinners Time Seen by Provider: 04/18/24 07:54 Source: patient and family Mode of arrival: ambulatory Limitations: no limitations History of Present Illness HPI narrative: Year old female, on Eliquis therapy, presenting today with a nosebleed that is been going on for about 2 hours. Patient states that she was holding pressure on it at home but has not yet. By the time I see the patient she has had a nose clip in place for over 10 minutes in her nose bleeding has subsided. She denies feeling dizzy or lightheaded. Denies any trauma to the face or nose. Related Data Home Medications ?Medication ?Instructions ?Recorded ?Confirmed aspirin 81 mg tablet,delayed 81 mg PO DAILY 11/27/22 11/27/22 release atorvastatin 10 mg tablet 10 mg PO DAILY 11/27/22 11/27/22 chlorthalidone 25 mg tablet 25 mg PO DAILY 11/27/22 11/27/22 cholecalciferol (vitamin D3) 25 25 mcg PO DAILY 11/27/22 11/27/22 mcg (1,000 unit) tablet fluticasone propionate 220 1 puff inhalation BID 11/27/22 11/27/22 mcg/actuation HFA aerosol inhaler levothyroxine 75 mcg tablet 75 mcg PO DAILY 11/27/22 11/27/22 losartan 50 mg tablet 50 mg PO DAILY 11/27/22 11/27/22 pantoprazole 40 mg tablet,delayed 40 mg PO DAILY 11/27/22 11/27/22 release potassium chloride 10 mEq 20 meq PO DAILY 11/27/22 11/27/22 tablet,extended release Previous Rx's ?Medication ?Instructions ?Recorded apixaban 5 mg tablet (Eliquis) 5 mg PO BID #60 tabs 11/29/22 metoprolol tartrate 100 mg tablet 100 mg PO BID #60 tabs 11/29/22 meclizine 25 mg tablet 25 mg PO QID PRN dizziness #20 tabs 07/11/23 Allergies Allergy/AdvReac Type Severity Reaction Status Date / Time codeine Allergy Verified 11/27/22 11:49 lisinopril Allergy Verified 11/27/22 11:49 Review of Systems Status of ROS: Reports: 6 or more systems reviewed and unremarkable except as noted in History and below PFSH PFSH Medical History Spinal stenosis of lumbar region ?M48.061 - Spinal stenosis, lumbar region without neurogenic claudication (ICD-10) Hypothyroidism ?E03.9 - Hypothyroidism, unspecified (ICD-10) Seasonal allergies ?J30.2 - Other seasonal allergic rhinitis (ICD-10) Asthma ?J45.909 - Unspecified asthma, uncomplicated (ICD-10) Sleep apnea ?G47.30 - Sleep apnea, unspecified (ICD-10) Morbid obesity ?E66.01 - Morbid (severe) obesity due to excess calories (ICD-10) Gastroesophageal reflux ?K21.9 - Gastro-esophageal reflux disease without esophagitis (ICD-10) Hypertension ?I10 - Essential (primary) hypertension (ICD-10) Diabetes mellitus ?E11.9 - Type 2 diabetes mellitus without complications (ICD-10) Surgical History History of tonsillectomy and adenoidectomy ?Z90.89 - Acquired absence of other organs (ICD-10) History of abdominal hysterectomy ?Z90.710 - Acquired absence of both cervix and uterus (ICD-10) History of cholecystectomy ?Z90.49 - Acquired absence of other specified parts of digestive tract (ICD- 10) History of appendectomy ?Z90.49 - Acquired absence of other specified parts of digestive tract (ICD- 10) Family History Mother Polycythemia vera Father Prostate cancer Social History Narrative: She lives in [place] with her disabled son and [id number].. She reports generally this is going well for her. Her son Torres who also lives in [place] is healthcare power of tax associate attorney. Her code status is DNR. She is a nonsmoker and rarely drinks alcohol. Highest level of school completed/degree received: high school graduate Smoking Status: Never smoker Do you use any of these nicotine containing products: None Second hand tobacco smoke exposure: No How often do you have a drink containing alcohol: never How often do you have six or more drinks on one occasion: Never AUDIT-C Alcohol total score: 0 Non-prescribed substance use: denies use Caffeine: Yes (Coffee 4 cups /day) service: No Exam Narrative: Exam Narrative: Well-nourished well-developed patient in no acute distress. Alert and oriented. Answers questions appropriately. Mood and affect are appropriate. Thoughts are goal oriented and rational. No tangential or magical thinking noted. Patient speaks in full sentences without needing to catch her breath. HEENT: Normocephalic atraumatic. Extraocular muscles are intact. Conjunctivae are moist without any icterus noted. Moist mucous membranes. Posterior pharynx is normal. No blood visualized in the posterior pharynx. Patient has some crusted dried blood around the entrance of both nares. There is no active bleeding visualized. The septum are clear without any crusting or evidence of bleeding. There is no blood pooling in the bottom of the nose. Skin: Warm, dry, intact. Const: Vital Signs, click to edit/add: Vital Signs - 24 hr 04/18/24 07:38 Temperature 97.6 F Pulse Rate [Pulse Oximeter] 55 L Respiratory Rate 20 Blood Pressure [Ri ght Forearm] 160/66 H Pulse Oximetry 94 Oxygen Delivery Me thod Room Air Course Vital Signs Vital signs: Initial Vital Signs Temperature 97.6 F 04/18/24 07:38 Temperature Source Temporal Artery Scan 04/18/24 07:38 Pulse Rate 55 L 04/18/24 07:38 Pulse Rhythm Regular 04/18/24 07:38 Respiratory Rate 20 04/18/24 07:38 Blood Pressure 160/66 H 04/18/24 07:38 Blood Pressure Mean 97 04/18/24 07:38 Blood Pressure Position Sitting 04/18/24 07:38 Pulse Oximetry 94 04/18/24 07:38 Oxygen Delivery Method Room Air 04/18/24 07:38 Vital Signs Temperature 97.6 F 04/18/24 07:38 Pulse Rate 55 L 04/18/24 07:38 Respiratory Rate 20 04/18/24 07:38 Blood Pressure 160/66 H 04/18/24 07:38 Pulse Oximetry 94 04/18/24 07:38 Oxygen Delivery Method Room Air 04/18/24 07:38 Temperature 97.6 F 04/18/24 07:38 Pulse Rate 55 L 04/18/24 07:38 Respiratory Rate 20 04/18/24 07:38 Blood Pressure 160/66 H 04/18/24 07:38 Pulse Oximetry 94 04/18/24 07:38 Oxygen Delivery Method Room Air 04/18/24 07:38 Medical Decision Making MDM Narrative Medical decision making narrative: 88-year-old female with epistaxis, now resolved. We discussed monitoring her in the ER to see if it comes back in the patient is not wish to do this. Will send her home with a nose clip. She is instructed to put this on for at least 10 minutes, on interrupted to see if this helps with the nose bleed if that occurs again. If not she is welcome to return to the ER and we discussed nasal packing. Patient was in agreement and had no other questions. Discharge Plan Discharge Clinical Impression: Epistaxis Patient Disposition: Home w/ Parent or Adult Condition: Improved Additional Instructions: Do not blow your nose for the rest of the day, avoid using a Kleenex inside the nose. If nose bleed starts again, place nose clip on your nose and leave on the nose, on interrupted for 10 minutes or more. If this does not resolve your nose bleed, return to the ER. Prescriptions: No Action losartan 50 mg tablet 50 mg PO DAILY atorvastatin 10 mg tablet 10 mg PO DAILY potassium chloride 10 mEq tablet extended release 20 meq PO DAILY chlorthalidone 25 mg tablet 25 mg PO DAILY levothyroxine 75 mcg tablet 75 mcg PO DAILY pantoprazole 40 mg tablet,delayed release (DR/EC) 40 mg PO DAILY fluticasone propionate 220 mcg/actuation HFA aerosol inhaler 1 puff INHALATION BID aspirin 81 mg tablet,delayed release (DR/EC) 81 mg PO DAILY cholecalciferol (vitamin D3) 25 mcg (1,000 unit) tablet 25 mcg PO DAILY metoprolol tartrate 100 mg Tablet 100 mg PO BID Qty: 60 0RF Rx Instructions: finish your home supply of 50mg metoprolol by taking two tabs(100mg) twice daily, when gone - new med is 100mg, so one tab BID Eliquis 5 mg Tablet 5 mg PO BID Qty: 60 0RF meclizine 25 mg tablet 25 mg PO QID PRN (Reason: dizziness) Qty: 20 0RF Follow Up/Referrals: Abbe Zuluaga MD [Primary Care Provider] - Stand Alone Forms: [employer] Info Instructions
== END 2024-04-18 08:15 | disposition home or self-care (01) ==
LOC: ED 08:05
PROVIDERS: Emergency Provider Family Medicine; PCP Family Medicine
DX: R04.0 Epistaxis (principal)
CPT/HCPCS: 99282; 99283

== ENCOUNTER 2025-03-18 14:35 | Emergency (ER) | payer MEDICARE, SELFPAY ==
--- OUTSIDE RECORDS SUMMARY | 2025-03-18 14:38 | XMS_ITS | Clinical Summary ---
Author Organization [employer] [facility] Address [address] [place] [id number] Care Team Providers Care Workers Compensation Claims Analyst Name Role Phone PatricioteAbbe buckner MD Primary Care Provider + Allergies Active Allergy Reactions Criticality Noted Date Comments Codeine Nausea Only Lisinopril Cough 11/25/2015 Medications cholecalciferol (VITAMIN D) 1,000 unit tablet Take 1 tablet by mouth once daily. 0 11/28/19 13 Active lancets (MICROLET LANCET)Indicatio ns:diabetes mellitus For testing blood sugars at home Indications : diabetes 100 Each 12 10/07/19 20 Active magnesium oxide (MAG-OX 400) 400 mg tabletIndication s:Low magnesium level Take 1 Tablet (400 mg) by mouth once daily. 100 Tablet 3 12/12/19 23 Active blood sugar diagnostic (Contour Next Test Strips) stripIndications :diabetes mellitus Contour Next strip. Test 1 times per day. 100 Each 4 02/21/20 23 Active sl-fvi-TV-vit B-pzsvvm-xczgfnf (PreserVision AREDS 2 Plus MV) 200 mcg-15 mcg- 5 mg-1 mg cap Take by mouth. Active metoprolol succinate (TOPROL XL) 50 mg sustained-releas e tabletIndication s:Paroxysmal A-fib (HC) Take 1 Tablet (50 mg) by mouth once daily in the evening. 90 Tablet 3 04/20/20 24 Active apixaban (Eliquis) 2.5 mg tabletIndication s:Paroxysmal A-fib (HC) Take 1 Tablet (2.5 mg) by mouth two times daily. 180 Tablet 3 09/23/19 25 Active atorvastatin 10 mg tabletIndication s:Hyperlipidemia LDL goal <100 TAKE ONE TABLET BY MOUTH ONE TIME DAILY 90 Tablet 1 10/27/19 25 Active spironolactone 25 mg tabletIndication s:Acute diastolic heart failure (HC) Take 1 Tablet (25 mg) by mouth once daily. 90 Tablet 3 12/17/19 25 Active pantoprazole 40 mg delayed-release tabletIndication s:Gastroesophage al reflux disease, unspecified whether esophagitis present Take 1 Tablet (40 mg) by mouth once daily. 90 Tablet 3 12/17/19 25 Active losartan 25 mg tabletIndication s:HTN (hypertension) Take 1 Tablet (25 mg) by mouth once daily. 90 Tablet 3 12/17/19 25 Active levothyroxine 75 mcg tabletIndication s:Hypothyroidism , unspecified type Take 1 Tablet (75 mcg) by mouth once daily. 90 Tablet 3 12/17/19 25 Active fluticasone propionate 220 mcg/Actuation inhalerIndicatio ns:Mild persistent asthma without complication (HC) Inhale 1 Puff by mouth two times daily. 1 Each 12/17/19 25 Active dapagliflozin propanediol (Farxiga) 10 mg tabletIndication s:Acute diastolic heart failure (HC) Take 1 Tablet (10 mg) by mouth once daily. 90 Tablet 3 12/17/19 25 Active amiodarone 100 mg tabletIndication s:Paroxysmal A-fib (HC) Take 100 mg by mouth once daily. 90 Tablet 3 12/17/19 25 Active torsemide (DEMADEX) 5 mg tabletIndication s:Acute diastolic heart failure (HC) TAKE ONE TABLET BY MOUTH ONE TIME DAILY 90 Tablet 2 03/14/20 25 Active amLODIPine (NORVASC) 5 mg tabletIndication s:HTN (hypertension) Take 1 Tablet (5 mg) by mouth once daily. 90 Tablet 3 03/16/20 25 Active torsemide (DEMADEX) 5 mg tabletIndication s:Acute diastolic heart failure (HC) TAKE ONE TABLET BY MOUTH ONE TIME DAILY 90 Tablet 1 09/14/19 25 025 Discontinued amLODIPine 2.5 mg tabletIndication s:HTN (hypertension) Take 1 Tablet (2.5 mg) by mouth once daily. 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 Impaired fasting glucose 10/26/2014 Cataract 12/22/2013 GERD (gastroesophageal reflux disease) 4 Vitamin D deficiency 12/05/2009 Seasonal allergies 11/21/2009 health maintenance 11/17/2007 Overview (11/27/2012): Dexa 2011 normal. Declines colon cancer screening. Unspecified hypothyroidism Other and unspecified hyperlipidemia Resolved Problems Problem Noted Date Diagnosed Date Resolved Date Foot ulcer, right, limited t o breakdown of skin 08/31/2020 08/29/2021 Encounters Date Type Department Care Team Description 03/16/2025 10:30 AM CDT Office Visit [facility] [id number] [place] [address] [address] [place] [address] Luis Valladares MD Follow Up (6 mo follow up- Dx: Paroxysmal A-fib (HC) [I48.0]; Chronic diastolic heart failure (HC) [I50.32]; HTN (hypertension) [I10]//pt states she feels good with no sx ) 03/16/2025 Travel 03/14/2025 Refill [facility] [address] [place] [address] Luis Valladares MD Refill Request (Torsemide) 03/10/2025 3:15 PM CDT Orders Only [facility] [address] [place] [address] Lab, [place] [facility] 03/10/2025 Travel 12/17/2024 Telephone [facility] [address] [facility] [address] [place] [address] Luis Valladares MD Results (BMP, pBNP, LFTs) 12/16/2024 3:20 PM CDT Office Visit [facility] [address] [place] [address] Abbe Zuluaga MD Medicare ANNUAL (subsequent) Visit (89 year old female); Diabetes 12/16/2024 Travel from Last 3 Months Immunizations Immunization Administration Dates Next Due AMB INFLUENZA IIV3 (AGE 65+ YRS) PF (Flu Clinic Only) 03/27/2017 AMB Influenza, IIV3 (Age >=3 years)(Flu Clinic Only) 04/07/2013 COVID-19 vaccine (Pfizer-Bio NTech 30mcg/0.3mL) 12YO+ BIVALENT PF, MDV 05/09/2022 COVID-19 vaccine (Pfizer-Bio NTech 30mcg/0.3mL) PF, MDV 05/03/2021,09/12/2020,08/22/2020 INFLUENZA, IIV3 PF (AGE >= 6 MO) 04/30/2011,03/01 Influenza, High-dose Inactivated 024,03/09/2018,04/01/2016,03/16,05/19/2014 Influenza, High-dose Quadriv alent Inactivated 04/20/2023,04/09/2022,04/25/2020 Influenza, IIV3 (Age >=3 years) 04/30/20 11,03/19/2010,03/08/2009,05/04,04/29/2007,04/21/2006 Influenza, Inactivated AIIV4 (Age 65+ Years) Preserv Free 04/09/2022 Influenza, Inactivated IIV3 (Age 65+ Years) Preserv Free 04/14/2019,03/27/2017 Pneumococcal Poly,23-Valent (Pneumovax) 11/10/2004,11/11/2003 Pneumococcal conj 13-Valent (Prevnar 13) 10/26/2014 RSV, Recombinant ADJ Reconst ituted (Arexvy 120MCG/0.5mL) 06/01/2023 Td (Age >=7 Years) 11/10/2004,11/11/2003 Tdap 11/27/2012 Zoster (Shingrix-RZV, recombinant) 12/01/2018,,08/27/2018 Zoster (Zostavax-ZVL, live) 11/28/2011 Family History Medical History Relation Name Comments Sudden Brother 1 related to hear t disease Heart Disease Brother 2 Cancer-prostate Father mets to lung and brain Blood Disease Mother polycythemia v era, tias Asthma Other Cancer Paternal Aunt Cancer-breast Paternal Aunt Relation Name Status Comments Brother 1 Brother 2 Alive Father Mother Other Paternal Aunt Social History Tobacco Use Types Packs/Day Years Used Date Smoking Tobacco: Never Smokeless Tobacco: Never Tobacco Cessation:Counseling Given: Yes Alcohol Use Standard Drinks/Week Comments Not Currently 0 (1 standard drink = 0.6 oz pur e alcohol) rarely PHQ-2 Answer Date Recorded PHQ-2 TOTAL SCORE 0 12/16/2024 Social Connections Answer Date Recorded Do you often feel lonely or isolated from those around you? 0 12/16/2024 Financial Resource Strain Answer Date R ecorded Difficulty of Paying Living Expenses 3 12/16/2024 Difficulty of Paying Living Expenses Not on file 12/16/2024 Food Insecurity Answer Date Recorded Do you worry your food will run out before you are able to buy more? 1 12/16/2024 Transportation Needs Answer Date Record ed Does lack of transportation keep you from medica l appointments? 1 12/16/2024 Does lack of transportation keep you from work, meetings or getting things that you need? 1 12/16/2024 Housing Stability Answer Date Recorded What is your housing situation today? 1 12/16/2024 Utilities Answer Date Recorded Do you have trouble paying f or utilities (for example, heat, electricity, water, phone)? 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 Gender Identity Not on file Sexual Orientation Not on file Obstetrics History Para Term AB IAB SAB Ectopic Multiple Livin g Live Births 3 3 3 Date Outcome GA Total Labor Labor/2nd/3rd Weight Sex Type Anes PTL Jessie A1 A5 Name Clin Term Term Term Last Filed Vital Signs Vital Sign Reading Time Taken Comments Blood Pressure 138/60 03/16/2025 10:33 AM CDT Pulse 59 03/16/2025 10:33 AM CDT Temperature 36.4 C (97.5 F) 12/16/2024 3:47 PM CDT Respiratory Rate 16 02/05/2023 1:36 PM CDT Oxygen Saturation 98% 03/16/2025 10:33 AM CDT Inhaled Oxygen Concentration - - Weight 95.3 kg (210 lb) 03/16/2025 10:33 AM CDT Height 149.9 cm (4' 11) 12/16/2024 3:47 PM CDT Body Mass Index 42.41 12/16/2024 3:47 PM CDT Plan of Treatment Upcoming Encounters Date Type Department Care Team (Late st Contact Info) Description 06/16/2025 3:20 PM [employer] MANAGER Office Visit [facility] [address] [place] [address] VoAbbe alves MD [address] [place] [address] Health Maintenance Due Date Last Done Comments Tetanus booster 11/27/2022 11/27/2012, 10/28, 11/11/2003 COVID-19 vaccine series ( season) 2025 05/09/2022, 05/03/2021, 09/12/2020, Additional history exists Influenza Vaccine (#1) 2025 , 04/09/2022, 04/14/2019, Additional history exists BMI (ht and wt on same day) for age 18+ 12/16/2025 12/16/2024, 09/22/2024, 06/03/2024, Additional history exists Depression screening for age 12+ 12/16/2025 12/16/2024, 12/11/2023, 08/28/2022, Additional history exists Medicare Wellness for age 65+ 12/17/2025 12/16/2024, 05/03/2021, 10/13/2018, Additional history exists Pneumococcal series for age 50+ Completed 10/26/2014, 11/10/2004, 11/11/2003 DEXA/DXA scan for age 65+ Completed 10/07/2017, 10/2011 Zoster (shingles) series for age 50+ Completed 12/01/2018, 10/28/2018, 08/27/2018, Additional history exists RSV vaccine for adults or Completed 06/01/2023 Hepatitis B series for 19+ Aged Out N o longer eligible based on patient's age to complete this topic Procedures Procedure Name Priority Date/Time Associated Diagnosis Comments HEPATIC FUNCTION PANEL Routine 03/10/2025 3:30 PM CDT Paroxysmal A-fib (HC) BASIC METABOLIC PANEL Routine 03/10/2025 3:30 PM CDT Chronic diastolic heart failure (HC) PRO-BNP Routine 03/10/2025 3:30 PM CDT Chronic diastolic heart failure (HC) BASIC METABOLIC PANEL Routine 12/16/2024 3:36 PM CDT Chronic diastolic heart failure (HC) HEPATIC FUNCTION PANEL Routine 12/16/2024 3:36 PM CDT Paroxysmal A-fib (HC) PRO-BNP Routine 12/16/2024 3:36 PM CDT Chronic diastolic heart failure (HC) HEMOGLOBIN A1C MONITORING (POCT) Routine 12/16/2024 3:33 PM CDT Controlled type 2 diabetes mellitus without complication, without long-term current use of insulin (HC) XR DXA BONE DENSITY 2 SITES AXIAL Routine 10/07/2017 11:14 AM CDT Menopause from Last 3 Months or Most Recently Relevant to Health Maintenance Results * (ABNORMAL) PRO-BNP (03/10/2025 3:30 PM CDT) Only the most recent of2 resultswithin the time period is included. NT PROBNP 1059(H) <450 pg/mL 03/11/2025 11:04 AM CDT [facility] Blood BLOOD SPECIMEN / Unknown [facility] / Unknown 03/10/2025 3:30 PM CDT 03/10/2025 3:30 PM CDT Luis Valladares MD SEND OUTS Final Result [facility] [id number] [place] [address], [place] [phone] * HEPATIC FUNCTION PANEL (03/10/2025 3:30 PM CDT) Only the most recent of2 resultswithin the time period is included. ALBUMIN 4.4 3.6 - 5.1 g/dL 03/11/2025 5:02 AM CDT [facility] PROTEIN, TOTAL 6.7 6.1 - 8.1 g/dL 03/11/2025 5:02 AM CDT [facility] BILIRUBIN, TOTAL 0.9 0.2 - 1.2 mg/dL 03/11/2025 5:02 AM CDT [facility] BILIRUBIN, DIRECT 0.2 < OR = 0.2 mg/dL 03/11/2025 5:02 AM CDT [facility] BILIRUBIN, INDIRECT 0.7 0.2 - 1.2 mg/dL (calc) 03/11/2025 5:02 AM CDT [facility] ALKALINE PHOSPHATASE 82 37 - 153 U/L 03/11/2025 5:02 AM CDT [facility] ALT 15 6 - 29 U/L 03/11/2025 5:02 AM CDT [facility] AST 15 10 - 35 U/L 03/11/2025 5:02 AM CDT [facility] GLOBULIN 2.3 1.9 - 3.7 g/dL (calc) 03/11/2025 5:02 AM CDT [facility] ALBUMIN/GLOBULIN RATIO 1.9 1.0 - 2.5 (calc) 03/11/2025 5:02 AM CDT [facility] Blood BLOOD SPECIMEN / Unknown [facility] / Unknown 03/10/2025 3:30 PM CDT 03/10/2025 3:30 PM CDT Luis Valladares MD CHEMISTRY Final Result [facility] [address] [place] [address], * (ABNORMAL) BASIC METABOLIC PANEL (03/10/2025 3:30 PM CDT) Only the most recent of2 resultswithin the time period is included. SODIUM 138 135 - 146 mmol/L 03/11/2025 5:02 AM CDT [facility] POTASSIUM 4.8 3.5 - 5.3 mmol/L 03/11/2025 5:02 AM CDT [facility] CARBON DIOXIDE 25 20 - 32 mmol/L 03/11/2025 5:02 AM CDT [facility] GLUCOSE 111(H) 65 - 99 mg/dL 03/11/2025 5:02 AM CDT [facility] Comment: Fasting reference interval For someone without known diabetes, a glucose value between 100 and 125 mg/dL is consistent with prediabetes and should be confirmed with a follow-up test. CALCIUM 9.0 8.6 - 10.4 mg/dL 03/11/2025 5:02 AM CDT [facility] CREATININE 1.88(H) 0.60 - 0.95 mg/dL 03/11/2025 5:02 AM CDT [facility] BUN/CREATININE RATIO 15 6 - 22 (calc) 03/11/2025 5:02 AM CDT [facility] EGFR 25(L) > OR = 60 mL/min/1. 73m2 03/11/2025 5:02 AM CDT [facility] UREA NITROGEN (BUN) 29(H) 7 - 25 mg/dL 03/11/2025 5:02 AM CDT [facility] ELECTROLYTE BALANCE 9 7 - 17 mmol/L (calc) 03/11/2025 5:02 AM CDT [facility] CHLORIDE 104 98 - 110 mmol/L 03/11/2025 5:02 AM CDT [facility] Blood BLOOD SPECIMEN / Unknown [facility] / Unknown 03/10/2025 3:30 PM CDT 03/10/2025 3:30 PM CDT Luis Valladares MD CHEMISTRY Final Result [facility] [address] [place] [address], * (ABNORMAL) HEMOGLOBIN A1C MONITORING (POCT) (12/16/2024 3:33 PM CDT) POC HEMOGLOBIN A1C 6.0(H) <6.0 % OF TOTAL HGB [facility] Comment: Any point of care results exhibiting inconsistency with the patient's clinical status should be repeated using a different testing method. Blood BLOOD SPECIMEN / Unknown 12/16/2024 3:33 PM CDT 12/16/2024 3:33 PM CDT Abbe Zuluaga MD CHEMISTRY Final Re sult [facility] [address] [place] [address], [facility] [address] [place] [address] * XR DXA BONE DENSITY 2 SITES AXIAL (10/07/2017 11:14 AM CDT) Anatomical Region Laterality Modality Spine, HIPS, HIPL, HIPR Other Abbe Zuluaga MD DEXA Final Re sult from Last 3 Months or Most Recently Relevant to Health Maintenance Insurance [employer] MEDICARE ADVANTAGE MR MEDICARE PART A HB ONLY Advance Directives * Full Code (Latest Code Status on File) Date Activated Date Inactivated Comments 02/05/2023 12:20 PM 02/05/2023 4:39 PM Question Answer Comments Code Status Discussion: Reviewed Preferences Care Teams Workers Compensation Claims Analyst Relationship Specialty Start Date End Date Votel, Abbe Scott MD [address] [place] [address] PCP - General Family Practice 09/19/15
[2025-03-18 14:45] VITALS: BP 146/66; PULSE 66; RESP 20; TEMP 36.9; O2SAT 96
--- NOTE | 2025-03-18 14:57 | CRLHL7_ITS ---
For Patients: As a result of the Cures Act, medical imaging exams and procedure reports are released immediately into your electronic medical record. You may view this report before your referring provider. If you have questions, please contact your health care provider. INDICATION: Cough TECHNIQUE: Chest radiograph 2 views COMPARISON: 11/27/2022 FINDINGS: The sensitivity and specificity of the exam are moderately limited by the patient`s body habitus. Mediastinum: The central pulmonary arteries are enlarged and likely due to pulmonary hypertension. The heart silhouette is normal in size and morphology. Lung: Small lung volumes are present with mild interstitial prominence present in the right lung and left lung base without change and likely due to interstitial lung disease. No sign of pleural effusion seen. No pneumothorax is identified. Bone and Soft tissue: Unremarkable for age. IMPRESSION: 1. The central pulmonary arteries are enlarged and likely due to pulmonary hypertension. Dictated by Kyle Salas MD @ 03/18/2025 4:48:11 PM Dictated by: Kyle Salas MD @ 03/18/2025 16:48:14 (Electronically Signed)
--- NOTE | 2025-03-18 14:58 | ED.GENADULT ---
HPI - General Adult General Chief complaint: Cough Stated complaint: Congestion Time Seen by Provider: 03/18/25 14:54 History of Present Illness HPI narrative: Patient is an 89-year-old woman who comes in today with a 2 week history of cough. She has had no fevers no chills no night sweats. Her cough is nonproductive. She does have history of COPD. She has had no recent sick contacts. Her cough is nonproductive with no sputum production or hemoptysis. No chest pain no shortness of breath. Patient is otherwise eating and drinking living independently. Related Data Home Medications ?Medication ?Instructions ?Recorded ?Confirmed aspirin 81 mg tablet,delayed 81 mg PO DAILY 11/27/22 03/18/25 release atorvastatin 10 mg tablet 10 mg PO DAILY 11/27/22 03/18/25 chlorthalidone 25 mg tablet 25 mg PO DAILY 11/27/22 03/18/25 cholecalciferol (vitamin D3) 25 25 mcg PO DAILY 11/27/22 03/18/25 mcg (1,000 unit) tablet fluticasone propionate 220 1 puff inhalation BID 11/27/22 03/18/25 mcg/actuation HFA aerosol inhaler levothyroxine 75 mcg tablet 75 mcg PO DAILY 11/27/22 03/18/25 losartan 50 mg tablet 50 mg PO DAILY 11/27/22 03/18/25 pantoprazole 40 mg tablet,delayed 40 mg PO DAILY 11/27/22 03/18/25 release potassium chloride 10 mEq 20 meq PO DAILY 11/27/22 03/18/25 tablet,extended release amiodarone 100 mg tablet 100 mg PO DAILY 03/18/25 03/18/25 amlodipine 2.5 mg tablet 2.5 mg PO DAILY 03/18/25 03/18/25 apixaban 2.5 mg tablet (Eliquis) 2.5 mg PO BID 03/18/25 03/18/25 Previous Rx's ?Medication ?Instructions ?Recorded apixaban 5 mg tablet (Eliquis) 5 mg PO BID #60 tabs 11/29/22 metoprolol tartrate 100 mg tablet 100 mg PO BID #60 tabs 11/29/22 meclizine 25 mg tablet 25 mg PO QID PRN dizziness #20 tabs 07/11/23 Allergies Allergy/AdvReac Type Severity Reaction Status Date / Time codeine Allergy Verified 03/18/25 14:41 lisinopril Allergy Verified 03/18/25 14:41 Review of Systems Status of ROS: Reports: 10 or more systems reviewed and unremarkable except as noted in History and below [facility] Medical History Spinal stenosis of lumbar region ?M48.061 - Spinal stenosis, lumbar region without neurogenic claudication (ICD-10) Hypothyroidism ?E03.9 - Hypothyroidism, unspecified (ICD-10) Seasonal allergies ?J30.2 - Other seasonal allergic rhinitis (ICD-10) Asthma ?J45.909 - Unspecified asthma, uncomplicated (ICD-10) Sleep apnea ?G47.30 - Sleep apnea, unspecified (ICD-10) Morbid obesity ?E66.01 - Morbid (severe) obesity due to excess calories (ICD-10) Gastroesophageal reflux ?K21.9 - Gastro-esophageal reflux disease without esophagitis (ICD-10) Hypertension ?I10 - Essential (primary) hypertension (ICD-10) Diabetes mellitus ?E11.9 - Type 2 diabetes mellitus without complications (ICD-10) Surgical History History of tonsillectomy and adenoidectomy ?Z90.89 - Acquired absence of other organs (ICD-10) History of abdominal hysterectomy ?Z90.710 - Acquired absence of both cervix and uterus (ICD-10) History of cholecystectomy ?Z90.49 - Acquired absence of other specified parts of digestive tract (ICD-10) History of appendectomy ?Z90.49 - Acquired absence of other specified parts of digestive tract (ICD-10) Family History Mother Polycythemia vera Father Prostate cancer Social History Narrative: She lives in [place] with her disabled son and [id number].. She reports generally this is going well for her. Her son Torres who also lives in [place] is healthcare power of assistant district attorney. Her code status is DNR. She is a nonsmoker and rarely drinks alcohol. Highest level of school completed/degree received: high school graduate Smoking Status: Never smoker Do you use any of these nicotine containing products: None Second hand tobacco smoke exposure: No How often do you have a drink containing alcohol: never How often do you have six or more drinks on one occasion: Never AUDIT-C Alcohol total score: 0 Non-prescribed substance use: denies use Caffeine: Yes (Coffee 4 cups /day) service: No Exam Narrative: Exam Narrative: EXAM GENERAL: Patient appears comfortable and well. EYES: No scleral icterus. LYMPH: No supraclavicular or cervical lymphadenopathy. SKIN: Visible skin seen during exam normal or with benign process only. EXT: No dependent lower extremity pedal edema. HEART: Regular rate and rhythm with no murmurs, rubs, or gallops. LUNGS: Coarse breath sounds bilaterally with expiratory wheezes. ABD: Soft, non tender, non distended. PSYCH: Good eye contact, speech is not pressured. Const: Vital Signs, click to edit/add: Vital Signs - 24 hr 03/18/25 14:45 Temperature 98.4 F Pulse Rate [Pulse Oximeter] 66 Respiratory Rate 20 Blood Pressure [Le ft Upper Arm] 146/66 H Pulse Oximetry 96 Oxygen Delivery Me thod Room Air Course Course ED Course: Patient seen and examined. Chest x-ray pending. Vital Signs Vital signs: Initial Vital Signs Temperature 98.4 F 03/18/25 14:45 Temperature Source Temporal Artery Scan 03/18/25 14:45 Pulse Rate 66 03/18/25 14:45 Respiratory Rate 20 03/18/25 14:45 Blood Pressure 146/66 H 03/18/25 14:45 Blood Pressure Mean 92 03/18/25 14:45 Pulse Oximetry 96 03/18/25 14:45 Oxygen Delivery Method Room Air 03/18/25 14:45 Vital Signs Temperature 98.4 F 03/18/25 14:45 Pulse Rate 66 03/18/25 14:45 Respiratory Rate 20 03/18/25 14:45 Blood Pressure 146/66 H 03/18/25 14:45 Pulse Oximetry 96 03/18/25 14:45 Oxygen Delivery Method Room Air 03/18/25 14:45 Temperature 98.4 F 03/18/25 14:45 Pulse Rate 66 03/18/25 14:45 Respiratory Rate 20 03/18/25 14:45 Blood Pressure 146/66 H 03/18/25 14:45 Pulse Oximetry 96 03/18/25 14:45 Oxygen Delivery Method Room Air 03/18/25 14:45 Medical Decision Making MDM Narrative Medical decision making narrative: Patient presents with nonproductive cough for 2 weeks. She has a chest x-ray today which shows minor pulmonary fluid which is typical for her. No signs of overt congestive heart failure. No fevers no chills. Viral swab a will be followed up on and is pending. This time I did treated with Z-Jarret as directed plus short course of prednisone. He will rest, advance her diet activity of follow-up with her primary physician as needed. Lab Data Labs: Lab Results 03/18/25 Range/Units 14:41 SARS-CoV-2 (PCR) Negative SARS-CoV-2 (Negative) Influenza Type A (PCR) Negative PCR FLU A (Negative) Influenza Type B (PCR) Negative PCR FLU B (Negative) RSV (PCR) Negative PCR RSV (Negative) Discharge Plan Discharge Clinical Impression: Asthma exacerbation in COPD Patient Disposition: Home, Self-Care Condition: Stable Instructions: COPD (Chronic Obstructive Pulmonary Disease) (ED) Additional Instructions: Z-Jarret as directed Prednisone as directed Rest Follow-up with your doctor next week. Activity Level: No Restrictions Discharge Diet: Regular Prescriptions: No Action losartan 50 mg tablet 50 mg PO DAILY atorvastatin 10 mg tablet 10 mg PO DAILY potassium chloride 10 mEq tablet extended release 20 meq PO DAILY chlorthalidone 25 mg tablet 25 mg PO DAILY levothyroxine 75 mcg tablet 75 mcg PO DAILY pantoprazole 40 mg tablet,delayed release (DR/EC) 40 mg PO DAILY fluticasone propionate 220 mcg/actuation HFA aerosol inhaler 1 puff INHALATION BID aspirin 81 mg tablet,delayed release (DR/EC) 81 mg PO DAILY cholecalciferol (vitamin D3) 25 mcg (1,000 unit) tablet 25 mcg PO DAILY metoprolol tartrate 100 mg Tablet 100 mg PO BID Qty: 60 0RF Rx Instructions: finish your home supply of 50mg metoprolol by taking two tabs(100mg) twice daily, when gone - new med is 100mg, so one tab BID Eliquis 5 mg Tablet 5 mg PO BID Qty: 60 0RF amlodipine 2.5 mg tablet 2.5 mg PO DAILY amiodarone 100 mg tablet 100 mg PO DAILY Eliquis 2.5 mg tablet 2.5 mg PO BID meclizine 25 mg tablet 25 mg PO QID PRN (Reason: dizziness) Qty: 20 0RF Follow Up/Referrals: Abbe Zuluaga MD [Primary Care Provider, Family Practice] Stand Alone Forms: [email or web address] Info Instructions
[2025-03-18 15:39] LABS: PCR FLU A Negative PCR FLU A (Negative); PCR FLU B Negative PCR FLU B (Negative); PCR RSV Negative PCR RSV (Negative); SARS PCR* Negative SARS-CoV-2 (Negative)
[2025-03-18 15:45] VITALS: BP 129/67; PULSE 61; RESP 18; O2SAT 93
[2025-03-18 16:00] VITALS: BP 135/63; PULSE 58; RESP 18; O2SAT 96
== END 2025-03-18 16:19 | disposition home or self-care (01) ==
PROVIDERS: Emergency Provider Internal Medicine; PCP Family Medicine
DX: J44.1 Chronic obstructive pulmonary disease with (acute) exacerbation (principal); J45.901 Unspecified asthma with (acute) exacerbation
CPT/HCPCS: 71046; 87631; 99283; 99284